=== PATIENT | female | born 1995 | race Caucasian/White ===

== ENCOUNTER 2019-02-25 19:01 | Emergency (ER) | payer OTHER, SELFPAY ==
[2019-02-25] MEDS: Acetaminophen 500 MG TAB (19:08)
--- NOTE | 2019-02-25 19:08 | W.ED.GENAD ---
Discharge Plan Disposition Patient Disposition: HOME Condition: Good Discharge Details Chief Complaint: Sorethroat Clinical Impression: Acute tonsillitis, Acute sore throat Primary Care Provider: Efraín Estrada ED Provider: Tylor Sotomayor Home Meds and New Rx's Prescriptions: New amoxicillin-pot clavulanate [Augmentin] 875-125 mg tablet 1 tab PO BID Qty: 20 RF: 0 Discharge Instructions Instructions: Pharyngitis (ED) Additional Instructions: Although your strep test is negative your signs and symptoms appear consistent with strep pharyngitis. Please take the antibiotic as directed. If you notice any worsening of your symptoms, or any new symptoms such as vomiting, diarrhea, fever, chills, shortness of breath, chest pain, numbness, weakness, or fainting , please return immediately to the emergency department for reevaluation. Please follow up with your primary care provider as soon as possible for reassessment and reevaluation. As always, it was a pleasure participating in your medical care today. Referrals: Efraín Estrada [Primary Care Provider] - Medical Decision Making This is a 23-year-old female who presents for evaluation of sore throat. Patient has had 2 days of sore throat. She states that she annually get something like this. She denies any severe fatigue. Physical exam shows large right tonsil, tonsillar exudate, no vesicles. No evidence of airway compromise. No clinical evidence of meningitis. No splenomegaly. Strep test was negative, however I feel that her symptoms are likely secondary to either a nontypeable strep, or M catarrhalis. We will treat with Augmentin, recommend continued NSAIDs. Discussed red flags for which to return. I have extensively reviewed the treatment plan and discharge instructions with the patient. I have addressed all patient concerns at this time. The patient was made aware of what symptoms to monitor for that would warrant a return to the emergency department. Discussed the plan with the patient, they demonstrate verbal understanding and agreement with our assessment and plan at this time. HPI General Date/Time Provider Initiated Documentation: 02/25/19 19:04. HPI Narrative: This is a 23-year-old female with no significant past medical history who presents today for sore throat for the last 2 days. She states that every year she seems to get a sore throat like this. However she has been strep negative in the past. She denies any severe fatigue, headache, neck pain, fever or chills. She denies any other complaints or other sick contacts. She has no other modifying factors. She has been taking ibuprofen this does slightly help her symptoms. Related Data Home Medications Medication Instructions Recorded Confirmed amoxicillin-pot clavulanate 1 tab PO BID #20 tab 02/25/19 [Augmentin] Previous Rx's Medication Instructions Recorded amoxicillin-pot clavulanate 1 tab PO BID #20 tab 02/25/19 [Augmentin] Allergies Allergy/AdvReac Type Severity Reaction Status Date / Time Sulfa (Sulfonamide Allergy Unverified 02/25/19 19:23 Antibiotics) Review of Systems All systems reviewed & are unremarkable except as noted in HPI and below PFSH Social History Smoking/Tobacco Use Status: Never Substance use type: does not use Exam Narrative Exam Narrative: 1.Const: Well-nourished, Well-developed, appearing stated age 2.Eyes: PERRL, no conjunctival injection, and symmetrical lids. 3.ENT: Atraumatic external nose and ears. Moist MM. Neck: Symmetric, trachea midline, No thyromegaly. Mild erythema the posterior oropharynx, right tonsil is mildly enlarged, tonsillar exudates is present. No evidence of peritonsillar abscess. No signs of airway compromise. Patient demonstrates good movement of cervical neck. There is no nuchal rigidity, no nuchal tenderness. Patient is able to flex the neck without any difficulty or significant pain. Negative Kernig's and Brudzinski sign. No evidence of perforation in the tympanic membranes, no effusion. 4.CVS: +S1/S2, No murmurs or gallops. Peripheral pulses 2+ and equal in all extremities. Brisk capillary refill in all extremities. 5.RESP: Unlabored respiratory effort. Clear to auscultation bilaterally. No wheezes rales or rhonchi 6.GI: Soft, Nontender/Nondistended, No hepatosplenomegaly. No guarding or rebound. 7.MSK: Normocephalic/Atraumatic, Extremities w/o deformity or ttp No cyanosis or clubbing, Normal movement of all extremities 8.Skin: Warm, Dry. No rashes or lesions. 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 Sensation grossly intact, no focal neurologic deficits. 10.Psych: (AAO) x3. Appropriate mood and affect
[2019-02-25 19:09] VITALS: BP 144/91; PULSE 95; RESP 20; TEMP 36.8; O2SAT 100
[2019-02-25] MEDS: Amoxicillin 875/Clav. 125 TAB PO (19:28)
[2019-02-25 19:39] VITALS: BP 136/75; PULSE 106; RESP 18; O2SAT 99
== END 2019-02-25 19:40 | disposition home or self-care (01) ==
LOC: ER 22:39
PROVIDERS: Emergency Provider Student in an Organized Health Care Education/Training Program; PCP Internal Medicine
DX: J03.00 Acute streptococcal tonsillitis, unspecified (principal)
CPT/HCPCS: 87880; 99283; 87081

== ENCOUNTER 2020-03-09 11:22 | Emergency (ER) | payer OTHER, SELFPAY ==
[2020-03-09 11:35] VITALS: BP 123/69; PULSE 92; RESP 16; TEMP 36.5; O2SAT 98
--- NOTE | 2020-03-09 12:20 | ED.GENADUL_ITS ---
Discharge Plan Disposition Patient Disposition: HOME Condition: Stable Discharge Details Clinical Impression: Pharyngitis Primary Care Provider: Efraín Estrada ED Provider: Jefferson Layne Home Meds and New Rx's Prescriptions: Continued fluoxetine 40 mg capsule 40 mg PO DAILY RF: 0 Discharge Instructions Instructions: Pharyngitis (ED) Additional Instructions: Rapid strep test is negative, culture is pending. If culture is positive we will contact you in place you on the appropriate antibiotics. Otherwise treat with dild-zgp-uxqiamh medications such as Tylenol, Motrin, Chloraseptic spray. Water gargles as tolerated. Please watch for new or worsening symptoms and return to the ER for any concerns. Medical Decision Making 24-year-old female presents complaining of sore throat that began last night. Clinically her tonsils bilaterally are minimally erythematous. No obvious exudates, edema, peritonsillar abscess. No uvula swelling or shifting. Patient is speaking without difficulty. She manages her secretions without difficulty. Clinically she appears well, nontoxic. Patient is afebrile, has no lym phadenopathy. Will obtain rapid strep. Rapid strep test is negative. Culture pending. Discussed findings with patient. She is concerned that she requires antibiotic therapy. I explained to her that her symptoms been going on for less than 1 day, rapid strep test is negative, and culture is pending. There are no clear indications for antibiotic therapy at this time. Suggest symptomatic control. Patient does not want a Covid test here, will attempt to find a rapid testing center. Medical Records Medical records reviewed: Yes I reviewed the patient's medical records. Lab Data Lab results reviewed: Yes I reviewed the patient's lab results. Lab results narrative: 03/09/20 11:40 Tonsil - Not Specified Streptococcus Screen (YASMIN) - Pending HPI General Mode of arrival: ambulatory . Date/Time Provider Initiated Documentation: 03/09/20 11:49 . Limitations to Documentation: no limitations . Information obtained by: patient . HPI Narrative: This is a 24-year-old female who denies any significant past medical history. She presents to the ER today reporting a sore throat that began last night, believes that she saw white patches on her tonsils. She states that she does get strep throat frequently. She has not taken any awmd-fxi-mzyrqgh medications. She has never seen an ENT specialist for her ongoing symptoms. She is also requesting a rapid Covid test so that she can return to work. I did explain to her that our tests are send outs, she no longer wants a Covid test here. Her plan is to call around and find a rapid testing center. Related Data Home Medications Medication Instructions Recorded Confirmed fluoxetine 40 mg PO DAILY 03/09/20 03/09/20 Allergies Allergy/AdvReac Type Severity Reaction Status Date / Time Sulfa (Sulfonamide Allergy Unverified 03/09/20 11:40 Antibiotics) General Stated Complaint: Sorethroat SAUL: 4 Review of Systems Constitutional Constitutional: Denies fever(s) and Denies headache(s) Eyes Eyes: Denies eye discharge ENT Ears, Nose, Mouth, and Throat: Reports otalgia, Denies headache(s), Denies neck pain and Reports sore throat Cardiovascular Cardiovascular: Denies dyspnea Respiratory Respiratory: Denies cough and Denies dyspnea Gastrointestinal Gastrointestinal: Denies abdominal pain, Denies nausea and Denies vomiting Musculoskeletal Musculoskeletal: Denies neck pain Integumentary/Breasts Skin/Breast: Denies rash Neurologic Neurologic: Denies headache(s) [facility] Social History Smoking/Tobacco Use Status: Never Smoking risk assessment performed?: Yes Alcohol Intake: current Alcohol Intake frequency: holidays/special occasions only Substance use type: does not use Exam Const General: cooperative, healthy appearing, comfortable and no acute distress Orientation: alert, awake and oriented x3 HENMT Head: normal to inspection, normocephalic and atraumatic Ears: external ears normal, TM's normal bilaterally and EAC's normal Mouth: moist mucous membranes Teeth and gingiva: dentition normal Throat: uvula midline, abnormal tonsil bilaterally erythema and hypertrophy 1+, no peritonsillar masses, posterior oropharynx abnormal erythema, uvula not displaced and no uvular edema Eyes General: appearance normal, both eyes and all related structures Alignment and Position: alignment normal Periorbital: periorbital findings normal Eyelids: eyelids normal Conjunctivae: conjunctivae normal Sclera: sclerae normal Cornea: corneas normal Pupils: PERRL EOM: EOM intact bilaterally Direct ophthalmoscopy: normal light reflex Neck Neck: normal visual inspection, full ROM, no lymphadenopathy, no meningeal signs, trachea midline, supple and nontender Resp Effort & Inspection: normal respiratory effort and able to speak in complete sentences Auscultation: clear to auscultation bilaterally Cardio Rate: regular rate Rhythm: regular rhythm Skin General skin exam: no rashes or lesions noted Neuro General: patient alert, patient awake, moves all extremities and no focal motor deficits Sensory Exam: no sensory deficits noted Psych Appearance: grossly normal Mental Status: mental status grossly normal Course Vital Signs Vital signs: Vital Signs Pulse 92 H 03/09/20 11:35 Respiratory Rate 16 03/09/20 11:35 Blood Pressure 123/69 03/09/20 11:35 Pulse Oximetry 98 03/09/20 11:35 Temperature Source Skin 03/09/20 11:35 Pulse 92 H 03/09/20 11:35 Respiratory Rate 16 03/09/20 11:35 Respiratory Effort Non-Labored 03/09/20 11:35 Blood Pressure 123/69 03/09/20 11:35 Blood Pressure Position Sitting 03/09/20 11:35 Pulse Oximetry 98 03/09/20 11:35 Pain Level 5 03/09/20 11:35 Lab/Test Results Lab/Test Results: 03/09/20 11:40 Tonsil - Not Specified Streptococcus Screen (YASMIN) - Pending POC Strep Test-FABBY(Rapid) Start: 03/09/20 11:45 Freq: .Rapid Strep Test Status: Active Protocol: Document 03/09/20 11:50 CB (Rec: 03/09/20 11:50 CB [id number]) Strep test-FABBY(Rapid)-POC POC-Strep test-FABBY (Rapid) Negative POC-Strep test-FABBY (Rapid) Negative
--- OUTSIDE RECORDS SUMMARY | 2020-03-09 12:41 | XMS_ITS ---
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 20 5153647 of acetabular labrum of right hip Problem Overweight (BMI E66.3 Active 2381 71284 25.0-29.9) ALLERGIES Substance Reaction Event Type Date Status Albuterol Sulfate made breathing worse Drug Allergy Feb, Ac tive sulfa sensitivity light reaction, itching Non Drug Allergy Feb, Active ENCOUNTERS Encounter Location Date Diagnosis LPO-SPECIALTY TEAM [facility] 10 Jan, [address] [facility] [address] [place] [address] Feb, [address] [facility] [address] [place] [address] Feb, Back pain M54.9 ; [place] [address] Irregular men ses N92.6 and Viral gastroente ritis A08.4 [facility] [address] [place] [address] Feb, [address] [facility] [address] [place] [address] Jun, [address] [facility] [address] [place] [address] Jun, [address] [facility] [address] [place] [address] May, Contr [place] [address] Z30.9 [facility] [address] [place] [address] May, Irreg ular menses N92.[address] [facility] [address] [place] [address] Mar, [place] [address] [facility] [address] [place] [address] Feb, Overw eight (BMI 25.0-29.9) [place] [address] E66.3 ; Contr aception management Z30.9 ; Oral contraception in itiation Z30.011 and Oral contraceptive us e Z30.41 [facility] [address] [place] [address] Jan, [place] [address] dysfunction of right side M53.3 [facility] [address] [place] [address] Dec, Overw eight (BMI 25.0-29.9) [place] [address] E66.3 [facility] OFF[facility] [address] [place] [address] Dec, [place] [address] dysfunction of right side M53.3 [facility] [address] [place] [address] Dec, Thyro megaly E04.9 [place] [address] -[facility] [address] Dec, Low serum [place] [address] E27.40 [facility] [address] [place] [address] Dec, [place] [address] E27.[address] Nov, Irregular m enses N92.6 ; [place] [address] Degenerative tear of acetabular labru m of right hip M16.11 ; Kevin ght gain R63.5 ; Asthma J 45.909 ; Overweight (BMI 25.0-29.9) E66.3 ; Alcohol screening Z13.89 and Encou nter for drug screening Z 02.83 [facility] [address] [place] [address] Nov, [place] [address] acetabular la jeny of right hip M16.11 ; Irr egular menses N92.6 ; W eight gain R63.5 ; Asthma J 45.909 ; Overweight (BMI 25.0-29.9) E66.3 ; Alcohol screening Z13.89 and Encou nter for drug screening Z 02.83 [facility] [address] [place] [address] Apr, [place] [address] labrum, subs equent encounter S73.19 1D [facility] Apr, [place] [address] [facility] Apr, [place] [address] labrum, subs equent encounter S73.19 1D [facility] 18 Mar, 2017 Chroni c maxillary OFFICE 1 [place] sinusitis J32. 0 and [address] Degenerative tea r of acetabular labru m of right hip M16.11 [facility] 11 Mar, 2017 [place]ear [place] [address] labrum, init ial encounter S73.191A [facility] Feb, OFFICE 1 [place], [place] [id number] [place] [address] [facility] Feb, OFFICE 1 [place], [place] [address] [place] [address] PHYSICIANS 8 [facility] Feb, OFFICE 1 [place], [place] [address] [place] [address] PH[facility] Feb, Well a dult health check OFFICE 1 [place], [place] Z00.00 ; [place] [address] drug screening Z 02.83 ; Right snapping h ip M24.851 ; Alcohol screen ing Z13.89 ; Screening for viral disease Z11.59 ; Screening for HIV (human immunodeficiency virus) Z11.4 ; Screenin g for diabetes mellitu s Z13.1 ; Encounter for li pid screening for cardiovascular d isease Z13.220 and Enco unter for initial prescrip tion of other contracept guy Z30.018 [facility] May, [place] 1 [place] [address] [facility] SUITE Apr, OFFICE 1 [place], [place] [address] [place] [address] PHYSIC[facility] 8 [facility] Apr, Encoun ter for drug OFFICE 1 [place] screening Z02. 83 ; Well [address] adult health xiomy ck Z00.00 ; Right upper qu adrant pain R10.11 and Alcohol screening Z13.89 [facility] Mar, [place] 1 [place] [address] [facility] Mar, OFFICE 1 [place], [place] [address] [place] [address] PHYSICIANS 8 [facility] SUITE Mar, OFFICE 1 [place], [place] [address] [place] [address] PHYSICIANS 8 [facility] Mar, [place] 1 [place] [address] [facility] Mar, [place]ICE 1 [place] [address] [facility] SUITE Feb, Right upper quadrant pain OFFICE 1 [place] R10.11 [address] [facility] GENER[facility] Feb, [place] [address] R10.11 [facility] SUITE Feb, Right upper quadrant pain OFFICE 1 [place] R10.11 [address] [facility] SUITE Mar, Well a dult health check OFFICE 1 [place] Z00.00 ; Asthm a J45.909 26031 and Eustachian t ube disorder H69.90 [facility] Feb, [place] [address] [place] [address] [facility] SUITE Feb, OFFICE 1 [place], [place] [address] [place] [address] [facility]ANS 8 [facility] SUITE Dec, Left o titis media H66.92 OFFICE 1 [place], [place] [address] [place] [address] [facility]YS[facility]ANS 8 [facility] SUITE Jun, OFFICE 1 [place] [address] [facility] SUITE Apr, [place]ICE 1 [place] [address] [facility] SUITE Apr, [place]ICE 1 [place] [address] zzLPO-PRIM and PSYCH [facility] Mar, [place] [address] [facility] Jan, Well b quang/ child exam OFFICE 1 [place], [place] V20.2 ; [place] [address] INFLUENZA V04.81 and KNEE PAIN 719.46 [facility] Jan, Sore t hroat (viral) NOS OFFICE 1 [place], [place] [address] [facility] Dec, [place] [address] [facility] Oct, [place] 1 [place] [address] zzLPO-PRIM and PSYCH [facility] Mar, [place] [address] [facility] Feb, [place] 1 [place] [address] [facility] GENERAL [facility] Jan, Sore throat 462 [place] [place] [address] [place] [address] [facility] Jan, Sore t hroat 462 and Acute OFFICE 1 [place] serous otitis media 381.01 68133 CASE MANAGEMENT [facility] Dec, [place] [address] [facility] Nov, [place] 1 [place] [address] [facility] Nov, SKIN D ISORDER NOS 709.9 [place] 1 [place] [address] [facility] Oct, Well b quang/ child exam OFFICE 1 [place], [place] V20.2 ; [place] [address] patella 717.7 ; Costochondritis 733.6 ; Immunization, tetanus-diphther ia V06.5 ; Need for Menactr a vaccination V03. 89 and SKIN DISORDER NO S 709.9 [facility] [address] [place] [address] Jan, Contra ception management OFFICE 1 [place] V25.9 [address] [facility] Sep, Chondromalac [place] [address] 717.7 CASE MANAGEMENT [facility] 16 Sep, 2011 Left knee pain 719.46 [place] [address] xxRADIOLOGY [facility] 16 Sep, 2011 [place] [address] [facility] [address] [place] [address] Aug, Knee s train 844.8 OFFICE 1 [place] [address] [facility] July, [place] 1 [place] [address] [facility] Jun, [place] [address] -HOSPITAL GENERAL [facility] 10 Jun, 2011 Well baby/ [place] [address] V20.2 ; Asth ma 493.90 ; FAMILY DISRUPTIO N NEC V61.09 ; ACADEMI C UNDERACHIEVMENT 313.83 ; Hyperlipemia 272 .4 and Thyromegaly 240. 9 [facility] [address] [place] [address] Jun, Well b quang/ child exam OFFICE 1 [place] V20.2 ; Asthma 493.90 ; [address] FAMILY DISRUPTIO N NEC V61.09 ; ACADEMI C UNDERACHIEVMENT 313.83 ; Hyperlipemia 272 .4 and Thyromegaly 240. 9 [facility] Apr, [place] 1 [place] [address] [facility] Feb, [place] 1 [place] [address] [facility] Feb, [place] [address] ADMINISTRATION [facility] Jan, [place], [place] [address] [place] [address] [facility] 8 [facility] 13 Nov, 2009 OFF[address] PH[facility]IC[facility] 8 [facility] 24 May, 2009 OFF[address] PHYSIC[facility] 8 [facility] 16 Jan, 2009 OFFICE [address] PHYS[facility] 8 [facility] Dec, OFFICE [address] PHYSIC[facility] 8 [facility] 14 Dec, 2008 OFFICE [address] [facility] 8 [facility] Dec, OFFICE [address] 13 Dec, 2008 Throat pain 784.1 ; [place] [address] NOS 780.60 a nd Asthmatic bronchitis w/o s tatus asthmaticus or a cute exacerbation 493 .90 [facility] Dec, Throat pain 784.1 ; FEVER OFFICE 1 [place], [place] NOS 780.60 and Asthmatic [address] bronchitis w/o s tatus asthmaticus or a cute exacerbation 493 .90 [facility] Nov, OFFICE [address] [facility] 8 [facility] Aug, Well b quang/ child exam OFFICE 1 [place] V20.2 ; ASTHMA NOS 493.90 13097 ; Allergic rhini tis due to allergen 477.8 a nd VARICELLA VACCIN ATION V05.4 [facility] [address] [place] [address] Jun, OFFICE 1 [place], [place] [address] [place] [address] [facility] May, VACCIN FOR DISEASE NEC OFFICE 1 [place] V05.8 [address] [facility] May, OFFICE 1 [place] [address] [place] [address] PHYSICIAN OFFICE [facility] 17 Nov, 2007 SABRINA [place] [address] V05.4 [facility] Nov, VARICE LLA-NOT GIVEN-HAD OFFICE 1 [place] DISEASE V64.08 [address] [facility] [address] [facility] [address] 05 Nov, 2007 SABRINA ICELL[place] [address] DISEASE V64. 08 [facility] [address] [place] [address] Nov, OFFICE 1 [place], [place] [address] [place] [address] [facility] 8 [facility] Nov, OFFICE 1 [place] [id number] [facility] 02 Nov, 2007 VACCIN FOR DISEASE NEC OFFICE 1 [place] V05.8 [address] [facility] 10 Sep, 2007 OFF[place] 1 [place] [address] [facility] Aug, Well b quang/ child exam OFFICE 1 [place] V20.2 ; DTAP V ACCINATION [address]883 V06.1 ; [place] OCCAL VACCINE V03.89 ; VACCIN FOR DISEASE NEC V05.8 ; ASTHMA NOS 493.9 0 and Allergic rhiniti s due to allergen 477.8 [facility] 06 Aug, 2007 OFFICE 1 [place] [address] [facility] 09 Jul, 2007 OFF[place] 1 [place] [address] [facility] 10 Jun, 2007 [place] [address] [facility] 18 Apr, 2007 ASTHMA NOS 493.90 and OFFICE 1 [place] [address] allergen 477.8 [facility] Jan, ASTHMA NOS 493.90 [place] 1 [place] [address] [facility] 07 Jan, 2007 Influe nza vaccination OFFICE 1 [place] V04.81 [address] [facility] 14 Nov, 2006 OFF[place] 1 [place] [address] [facility] 17 Oct, 2006 ASTHMA NOS 493.90 OFFICE 1 [place] [address] IMMUNIZATIONS Vaccine Route Administration Date Status Hep B HISTORY adolescent or Unknown 1996 Admi nistered pediatric Influenza HISTORY Unknown Jan 17, 2011 Administered -[place]PV [place] Gardasil 12876 Unknown August 30, 2007 Admini stered -[place]PV [place] Gardasil 48206 Unknown Nov 05, 2007 Admini stered polio HISTORY Unknown 1996 Administered polio HISTORY Unknown June 15, 1997 Administered Hep B HISTORY adolescent or Unknown 1996 Admi nistered pediatric Hep B HISTORY adolescent or Unknown 1996 Admi nistered pediatric Hib HISTORY Unknown 1996 Administered -[place]PV [place] Gardasil 84467 Unknown May 20, 2008 Admini stered Tdap STATE Adacel 7yrs or older of IM Intramuscular Oct 28, 2012 Administered age 42[address] Varicella STATE Unknown August 31, 2008 Administered Varicella STATE [place] Subcutaneous Nov 20, 2007 Administered Meningococcal STATE(Menactra) 51621 [place] Subcutaneous Oct 28, 2012 Administered Meningococcal STATE(Menactra) 83507 Unknown August 29 8 Administered -Influenza split STATE preser IM Intramuscular Apr 08, 2010 A dministered free>35mos (98508) -Influenza split STATE preser IM Intramuscular Jan 09, 2007 A dministered free>35mos (19647) Hib HISTORY Unknown 1996 Administered Hib HISTORY Unknown 1996 Administered -Influenza FLUZONE STATE IM Intramuscular Jan 19, 2014 Admini stered 36mos-18yrs DTaP,HISTORY Unknown 1996 Administered DTaP,HISTORY Unknown 1996 Administered DTaP,HISTORY Unknown 1996 Administered DTaP,HISTORY Unknown June 15, 1997 Administered Depo-Provera 150MG/ML IM Intramuscular Feb 15, 2017 Administe red MMR HISTORY Unknown June 15, 1997 Administered MMR HISTORY Unknown July 27, 2000 Administered DTaP,HISTORY Unknown August 30, 2007 Administered polio HISTORY Unknown 1996 Administered polio HISTORY Unknown 1996 Administered SOCIAL HISTORY Qualifiers Date Never Smoker REASON FOR REFERRAL FUNCTIONAL STATUS PLAN OF CARE Activity Details Follow Up if not better Reason: Future Test US Transvaginal Pelvic 927 Future Test MR Joint Lower Ext R w (7372 2)-arthrogram [id number] Future Test X Hip R 2V [id number] Future Test NM HIDA Scan w/CCK (29280) 2 7670964 Future Test US Abdomen Limited (54749) 2 3340612 Future Test UA DIPSTICK ONLY-with CPE/IC C 20121028 VITAL SIGNS Height 64.5 in 2019-02-10 Weight 141.9 lbs 2019-02-10 BMI 23.98 kg/m2 2019-02-10 Temperature 99.1 degrees Fahrenheit 2019-02-10 Heart Rate 94 /min 2019-02-10 Respiratory Rate 18 /min 2019-02-10 Oximetry 98 % 2019-02-10 Blood pressure systolic 126 mm Hg 2019-02-10 Blood pressure diastolic 80 mm Hg 2019-02-10 MEDICATIONS Medication Instructions Dosage Frequency Start End Date Duration Stat us Date Xopenex HFA 45 Inhalation every 2 puffs Jun, 30 days Active MCG/ACT 4 hrs as needed 2018 Sprintec 28 Orally Once a day 1 tablet 24h 11 Mar, 28 day(s) Active 0.25-35 MG-MCG 2018 PROCEDURES Procedure Date Ordered Result Body Site UA- TEST (g code 36559) Feb 10, 2019 UA-DIPSTICK ([facility] code 04516) Feb 10, 2019 No HTN DX,BP <120/80 (71434) Feb 10, 2019 Med Rec done (73206) Feb 10, 2019 BMI normal (42134) Feb 10, 2019 Tob non-user (34870) Feb 10, 2019 SBIRT screening 2016-04-05 Negative SBIRT screening 2017-02-15 neg SBIRT screening 2017-11-29 N/A RESULTS Name Result Date Reference Range RAPID STREP SCREEN,AT HOSPITAL 2019-02-25 RAPID STREP SCREEN STREP A UA DIPSTICK ONLY-DIAGNOSTIC 2019-02-10 Color sonia Clarity clear Specific [place] 1.030 Glucose. neg Bilirubin small Ketones trace Blood large PH 5.5 Protein 30 mg Urobilinogen 1.0 Nitrite neg Leukocytes neg UA-Urine ,IN OFFICE 2019-02-10 RESULT NEG UA-COLONY COUNT ONLY 2019-02-10 Culture Observations No growth after 2 days of incubation UA-Urine ,IN OFFICE 2018-02-19 RESULT NEG ACTH 2017-12-04 ACTH, PLASMA 65.0 7.2-63.3 CORTISOL-SERUM 2017-12-04 [facility]-S 22.26 4.30-22.40 COMPMET 2017-11-29 GLUC 83 74-106 BUN 9 7-25 CREATS 0.64 0.60-1.20 EGFR >60 >=60 NA 137 136-144 K+ 4.0 3.5-5.1 CL 103 98-110 CO2 25 22-32 CA 9.7 8.6-10.3 TP 7.1 6.0-8.3 ALB 4.3 3.4-5.0 TBIL 0.5 0.3-1.2 DBIL 0.1 0.0-0.2 ALKP 98 34-104 AST 17 13-39 ALT 12 7-52 CORTISOL-SERUM 2017-11-29 [facility]-S 3.23 4.30-22.40 HEMOGLOBIN A1C 2017-11-29 HGBA1C 5.2 4.0-6.0 CMG 103 INSULIN 2017-11-29 INSULIN 16.4 2.6-24.9 TESTOSTERONE FREE AND TOTAL 2017-11-29 TESTOSTERONE, SERUM 25 8-48 FREE TESTOSTERONE(DIRECT) 0.5 0.0-4. 2 TSH 2017-11-29 TSH 1.622 0.360-4.800 US Transvaginal Pelvic 2017-12-03 See Below For Report MR Joint Lower Ext R w 2017-04-16 (79471)-arthrogram Image Accessible X Hip R 2V 2017-02-19 See Below For Report NM HIDA Scan w/CCK (35970) 2016-03-14 See Below For Report US Abdomen Limited (29385) 2016-02-23 See Below For Report AMYLASE 2016-02-17 DARÍO 44 25-115 BASEMET 2016-02-17 GLUC 83 74-106 BUN 10 7-18 CREATS 0.87 0.55-1.30 EGFR >60 >=60 NA 142 136-144 K+ 4.1 3.7-5.0 CL 105 98-108 CO2 25 22-32 CA 9.0 8.5-10.1 CBC WITH AUTO DIFF 2016-02-17 WBC 9.8 4.0-12.0 RBC 5.1 4.5-6.0 HGB 14.2 12.5-16.0 HCT 42.4 37.0-47.0 MCV 83 78-100 MCH 27.9 27.0-32.0 MCHC 33.5 32.0-36.0 RDW 13.7 11.0-14.0 PLT 282 140-440 MPV 12.2 7.4-11.0 ANC# 5.8 1.4-7.9 IG# 0.0 0.0-0.1 LY# 3.0 1.5-4.0 MO# 0.6 0.2-0.8 EO# 0.4 0.0-0.7 BA# 0.1 0.0-0.2 NE% 59.0 IG% 0.1 0.0-1.0 LY% 30.5 MO% 6.1 EO% 3.9 BA% 0.5 LIVER FUNCTION TESTS 2016-02-17 TP 7.5 6.5-8.1 ALB 4.1 3.4-5.0 TBIL 0.5 0.3-1.2 DBIL 0.2 0.0-0.2 ALKP 81 46-116 AST 15 15-37 ALT 18 13-78 UA-DIP PLUS MICRO W/REFLEX 2016-02-17 COL Yellow YELLOW CLARITY Clear CLEAR SG 1.020 1.001-1.035 GLU. Negative NEGATIVE SAGE Small NEGATIVE KET Trace NEGATIVE BLD Moderate NEGATIVE PH 5.5 5.0-8.0 PROT Negative NEGATIVE UROBILINOGEN 0.2 E.U./dL 0.2-1.0 NIT Negative NEGATIVE SAURABH Negative NEGATIVE MUC 3+ NEGATIVE BACT NEGATIVE NEGATIVE SEGUNDO NEG NEG EPI 3+ NEG RBCS NEGATIVE NEG WBCS NEGATIVE NEGATIVE CAST NEG NEG AMORPH NEG NEG RAPID STREP SCREEN,IN OFFICE 2014-01-07 (2 Swab System) Result Neg RAPID STREP PLATE 2014-01-07 Culture Observations Negative for group A Strep. Direct Exam Negative first am read RAPID STREP PLATE 2013-01-15 Direct Exam Negative at first am read Culture Observations No Group A Strep isolated RAPID STREP SCREEN,IN OFFICE 2013-01-15 (2 Swab System) Result Neg Path:Skin lesion 2012-11-18 Result UA DIPSTICK ONLY-with CPE/ICC 2012-10-28 COLOR yellow CLARITY clear SPECIFIC GRAVITY 1.030 GLUCOSE N BILIRUBIN N KETONES N BLOOD MOD PH 5.0 PROTEIN N UROBILINOGEN 0.2 LEUKOCYTES N NITRITES N UA-DIP W/REFLEX 2012-01-12 COLOR Yellow YELLOW CLARITY Clear CLEAR SPECIFIC GRAVITY >=1.030 1.001-1.035 GLUCOSE Negative NEGATIVE BILIRUBIN Negative NEGATIVE KETONES Negative NEGATIVE BLOOD Negative NEGATIVE PH 5.0 5.0-8.0 PROTEIN Negative NEGATIVE NITRITES Negative NEGATIVE LEUKOCYTES Negative NEGATIVE BASEMET 2012-01-12 GLUCOSE 85 74-115 BUN 12 7-18 CREATININE STANDARDIZED 0.62 0.60-1.3 0 SODIUM 139 136-145 POTASSIUM 3.4 3.7-5.0 CHLORIDE 103 99-109 CARBON DIOXIDE 26 23-31 CALCIUM 9.8 8.5-10.1 CBC WITH AUTO DIFF 2012-01-12 WHITE BLOOD COUNT 11.3 4.5-15.5 RED CELL COUNT 5.2 3.5-6.0 HEMOGLOBIN 14.7 11.5-15.5 HEMATOCRIT 44.4 35.0-45.0 MEAN CORPUSCULAR VOLUME 85 77-100 MEAN CORPUSCULAR HEMOGLOBIN 28.2 25.0 -35.0 MEAN CORPUSCULAR HGB CONC. 33.1 31.0- 37.0 RED CELL DISTRIBUTION WIDTH 13.1 11.0 -14.0 PLATELET 338 150-450 MEAN PLATELET VOLUME 12.1 7.4-11.0 NEUTROPHIL % 58.2 42.2-75.2 LYMPHOCYTE % 32.9 20.5-51.0 MONOCYTE % 4.8 1.7-9.3 EOSINOPHIL % 4 0-6 BASOPHIL % 1 0-1 ABSOLUTE NEUTROPHIL COUNT 6.6 1.4-7. 9 AUTOMATED UA-Urine ,AT HOSPITAL 2012-01-12 HCG URINE NEGATIVE NEGATIVE X ray: Abdomen- KUB-CPT [id number] 2012-01-12 X ray: Knee, left 2011-09-18 CBC WITH AUTO DIFF 2011-06-13 WHITE BLOOD COUNT 8.4 4.5-15.5 RED CELL COUNT 4.8 3.5-6.0 HEMOGLOBIN 13.3 11.5-15.5 HEMATOCRIT 42.0 35.0-45.0 MEAN CORPUSCULAR VOLUME 88 77-100 MEAN CORPUSCULAR HEMOGLOBIN 27.8 25.0 -35.0 MEAN CORPUSCULAR HGB CONC. 31.7 31.0- 37.0 RED CELL DISTRIBUTION WIDTH 14.7 11.0 -14.0 PLATELET 251 150-450 MEAN PLATELET VOLUME 12.7 7.4-11.0 NEUTROPHIL % 49.3 42.2-75.2 LYMPHOCYTE % 37.1 20.5-51.0 MONOCYTE % 7.8 1.7-9.3 EOSINOPHIL % 5 0-6 BASOPHIL % 1 0-1 ABSOLUTE NEUTROPHIL COUNT 4.2 1.4-7. 9 AUTOMATED GLUCOSE FASTING 2011-06-13 GLUCOSE FASTING 93 74-115 LIPID W/ CALCULATED LDL 2011-06-13 CHOLESTEROL 97 0-200 TRIGLYCERIDE 71 88-142 HDL 42 39-96 LDL 39 5-99 CHOL/HDL 2.3 0.0-4.5 T4 FREE 2011-06-13 T4 FREE 1.18 0.61-1.22 TSH 2011-06-13 THYROID STIMULATING HORMONE 1.573 0.34 0-5.600 UA DIPSTICK ONLY-with CPE/ICC 2011-06-12 COLOR yellow CLARITY SPECIFIC GRAVITY 1.015 GLUCOSE neg BILIRUBIN neg KETONES neg BLOOD neg PH 7.5 PROTEIN neg UROBILINOGEN 0.2 LEUKOCYTES tr NITRITES neg INFLUENZA A/B 2008-12-[address]ATE 2008-12-15 REASON FOR VISIT Re-establish with SG , [facility] ER note-await fax, back/stomach pain 1.5 weeks, Patient states that she has been having pain in her back that travels to the front. Has been haivng this pain for about 2 weeks, No refills needed-GR, pain in back and stomach, CPE, SG CPE <40-CPE Roomer, patient will need a pap, Levalbuterol denial - PA re sent , change inhalers, 3 MON MED & Weight FU--patient cancelled did not want to r/s 05/24, med list udpate, Wants a call back , RF Proventil, f/u weight , No refills needed-GS, 2 MON weight FU--pateitn cancelled did not want to r/s 02/11, 5 wk f/u, Pt saw Adalberto at PT, states it is helping, has last appt on 01/17-sd, 1 MON weight FU, Flu Vaccine- patient declines, Patient states no new concerns, Rt hip pain, Pt had Rt hip xray 02/2017, Pt states Rt hip pain for 1 year, pt was sent to [facility]-sd, Pt states just wants to see what AL has to say about it-sd, Pt states " has more pain in her back now"-sd, Pt states pain "can be an 8 out of 10 on really bad days"-sd, US results/referral, lab, Lab results, LAB, New PCP (Dr. Sutton patient), Patient would like to discuss her period, states that she will have it for three weeks and then not have it for a month, DISCLAIMER: THIS NOTE WAS CREATED USING [employer] VOICE RECOGNITION SOFTWARE. IT WAS REVIEWED FOR MAJOR CONTENT. HOWEVER, THERE MAY BE MULTIPLE SMALL DISCREPANCIES AND ERRORS DUETO THE VOICE RECOGNITION ASPECTS OF THE SOFTWARE., MRI f/u AL patient, pt states no other concerns today, MRI result, AL call back, f/u, Rt hip pain, Pt states has been popping, snapping, constant pain, injury-sd, work excuse, Something for hip pain, hip pain, next step, CPE , patient requested 02/09, right hip pain and popping? stress fractures and tendonitis? x's 3 months, restart omeprazole, discuss depo shot, 6 week f/u , refill-bcp, omeprazole, CPE, Pt has no concerns today, No refills needed atthis time , Pt declined flu shot today , change phone #, abd pain , HIDA results, Prescription refill , HIDA, LAB , stomach issue requested date, pain in ruq, diarrhea after eating, worse if she eats greasy foods since october, worse at night, Yearly exam. 19 Year Female Check, cholesterol, see preventative medicine, USPSTF recommends urine chlamydia screening for sexually active females in this age group, Pt. states she is concerned about not having a period since restarting control., BCP refill, refill-BCP---needs appt, ER f/u (weeks), No refills needed , Pt states that she hears ringing in both ears SB, [facility], another note, Letter for , LO [employer], 18 [facility], UTD on immunizations, flu shot if parent desires(yes) has fever though, Pt states she needs papers fromus regarding her knee injury to [employer]. , sore throat, pt states her ears hurt, stuffy, BC refill, form for school, XOPENEX PA-ALTERNATIVE, Refill Inhaler, strep, left ear bothering, starting to hurt in right, sore throat, Medications reviewed w/pt,med. list is correct margarito, Sports PE, PT Discharge Note, Stitch Removal, MOLE REMOVAL, from back shoulder, Medications reviewed w/pt,med. list is correct (JEANIE), wcc, pap only per pt.mom, Pt's mom states that she would like to talk to you about control for pt., Pt's states that she is not taking any medications-KF, LT KNEE PAIN, per pt" since July-went to slide into base and landed on left knee cap-pain when walking alot ,no numbness or tingling in the foot or toes., per pt " swells on and off,no popping,grinding.", Medications reviewed w/pt mother,med. list is correct- ch, Knee pain worsening, lt knee, knee problem-left knee. She states that it gives out on her, hurts to walk, Medications reviewed w/pt,med. list is correct- tp, Letter for camp, Blood work-HK, lab, WCC/Sport PE, Meds reviewed by pt,no longer taking: Benadryl, Prednisone, Zithromax, Nasonex, Singulair, Advair SP, Needs a short term inhaler for sports Xopenex, flu vaccine, Refill on Advair and Singulair , No resopnse--SINGULAIR REFILL-apt--,advair, signulair samples, wrong pt, Refill Singulair, Advair, List of meds/times to take, refill advair diskus, Question about flu diagnosis, flu questions, Liquid zithromax not available today, fever, congestion, pt states that she started sunday with fever. fever has been around 101.0, pt also has sore throat, body aches, Note for school to hand carry Ventolin HFA, yearly, Jaydon ZACARIAS student, singulair refill request fax, 3rd HPV, Refill Advair, chicken pox vaccine per dr barkley , VARICELLA VACCINE ADMINISTERED BY Niels TIRADO RN, ? varicella titer, chicken pox vaccine , medication, would like order for Xopenex , 2ND GUARDASIL, 2ND GUARDASIL, LMOM- Change in asthma, Wcc and f/u on meds, Jaydon Zacarias student, Allergies, Verify Advair Order, samples singulair, f/u asthma. doing very well. No issues, and not having to use her rescue inhaler once this winter, Does have some seasonal allergies. , 3 MONTH FU, flu shot, SCHOOL NEEDS IMUN RECORDS SAYS SHE IS SHORT A DPT, NEW PATIENT ASTHMA HX Insurance Providers [facility] Member Patient Patient Patient Patient Patient Subscriber Subscriber Subscriber Group Insurance Plan Plan Plan Plan ID Relationship Address Phone Name Date of ID Name Date of No Type Insurance Insurance Insurance Coverage to Subscriber Address Phone Name Dates SELF PAY ANY STREET SELF PAY [place] [id number] INSURANCE MEDICAID EDS MEDICAID self [place]AN[place] [id number] [place] BO[place] [employer] [facility] [id number] MEDICAID EDS MEDICAID self [place] [id number] [place] A BOEMIG [employer] [facility] [id number] SELF PAY [address] STRE[address] SELF PAY self [place] [id number] GENERAL VEN[place] GENERAL A [place] [id number] [place] [id number] SELF PAY self [place] [id number] [place] [id number] SELF PAY [place] [id number] [place] [id number] INS [facility] ATTN [facility] CASSANDR [id number] LEVEL 0- [address] LEVEL 0- A BOEMIG 100% SIA 100% [facility] [id number] MEDICAID XEROS MEDICAID self [place]ANDR [id number] [place] BO[place] [facility] [id number] MEDICAID EDS MEDICAID self [place]DR [id number] [place] [id number] [facility] [address] [facility] self CASSANDR [id number] NETWORK [id number] NETWORK A BOEMIG [facility] [id number] [facility] [address] [facility] self CASSANDR [id number] NETWORK [id number] NETWORK A BOEMIG [facility] [id number] SELF PAY self [place] [id number] [place] [id number] INS[address] [address] [place] self CASSANDR [id number] [place] [id number] SELF PAY [address] STRE[address] SELF PAY [place] [id number] [place] [id number] SELF PAY [place] [id number] [place] [address] [address] [place] [address] [place] self CASSANDR [id number] [place] [id number] [place] [address] [place] self CASSANDR [id number] A [place]IG [place] [id number] SELF PAY [address] SELF PAY self [place] [id number] [place] [id number] SELF PAY [place] 5 [place] [id number] INSURANCE MEDICAL (GENERAL) HISTORY Type Description Date Medical History Asthma Medical History Environmental allergies Medical History broke right arm Medical History Has had chicken pox Medical History patellofemoral syndrome Surgical History Broken arm right 06/09 Hospitalization History No Hospitalization history informati on
== END 2020-03-09 12:44 | disposition home or self-care (01) ==
LOC: ER 12:39
PROVIDERS: Emergency Provider Physician Assistant; PCP Physician Assistant Medical
DX: J02.9 Acute pharyngitis, unspecified (principal)
CPT/HCPCS: 87880; 99282; 87081; 99283

== ENCOUNTER 2020-07-01 13:41 | Emergency (ER) | payer MEDICAID, SELFPAY ==
[2020-07-01 13:55] VITALS: BP 101/43; PULSE 103; RESP 22; TEMP 36.4; O2SAT 99
--- NOTE | 2020-07-01 14:00 | DI.RAD_ITS ---
Exam(s) XR FOOT RT COMPLETE EXAM: XR FOOT RT COMPLETE CLINICAL HISTORY: Great toe and foot pain, R/O Fracture. TECHNIQUE: 2D digital imaging was performed. COMPARISON: No exams were available for comparison FINDINGS: Comminuted minimally displaced fracture distal phalanx of great toe. Fracture line not appear to inv olve interphalangeal joint. There is no radiopaque foreign body. No osseous lesions. IMPRESSION: DATA REPOSITORY: RADIATION DOSE DELIVERED:
--- NOTE | 2020-07-01 15:04 | ED.GENADUL_ITS ---
Discharge Plan Disposition Patient Disposition: HOME Condition: Stable Discharge Details Clinical Impression: Fracture of right great toe Primary Care Provider: Felisa Le ED Provider: Nalini Farris Home Meds and New Rx's Prescriptions: No Action 1 mg Tablet 1 tab PO DAILY RF: 0 Discharge Instructions Instructions: Toe Fracture (ED) Additional Instructions: Use postop shoe as directed crutches if needed. Do not bump toe on anything or apply weight to the toe if possible. He may soni tape it to the toe next to it for stabilization if that improves pain. You may take Tylenol every 4 to hours as needed for pain. Rest ice compression elevation. Keep wound clean and dry. Return to the ED or be seen sooner if any signs of infection including increased redness, swelling, worsening drainage to the area. Referrals: Felisa Le [Primary Care Provider] - Discharge Data Discharge Date/Time-TO BE ENTERED AT DEPARTURE: 07/01/20 15:28 Medical Decision Making 25-year-old 5-month-old female presents to the ER chief complaint of right great toe pain status post a trip and fall prior to arrival. Patient did not take any medications prior to arrival. She is not complaining of any ankle pain or knee pain. No other injuries noted. EXAM: XR FOOT RT COMPLETE CLINICAL HISTORY: Great toe and foot pain, R/O Fracture. TECHNIQUE: 2D digital imaging was performed. COMPARISON: No exams were available for comparison FINDINGS: Comminuted minimally displaced fracture distal phalanx of great toe. Fracture line not appear to involve interphalangeal joint. There is no radiopaque foreign body. No osseous lesions. 1508: Spoke with Dr. Arias regarding patient he was able to personally review the x-rays. He does recommend postop shoe and offering soni tape if needed. Will instruct patient not to bump toe or place weight on toe as much as possible. We did discuss the small skin break at the base of the nail he states that antibiotics could be offered and some local bacitracin ointment. HPI General Mode of arrival: wheelchair . Date/Time Provider Initiated Documentation: 07/01/20 13:57 . Limitations to Documentation: no limitations . Information obtained by: patient . HPI Narrative: 25-year-old 5-month-old female presents to the ER chief complaint of right great toe pain st atus post a trip and fall prior to arrival. Patient did not take any medications prior to arrival. She is not complaining of any ankle pain or knee pain. No other injuries noted. Related Data Home Medications Medication Instructions Recorded Confirmed cqvxjnzu-mki-Qs-FA 1 tab PO DAILY 07/01/20 07/01/20 [] Allergies Allergy/AdvReac Type Severity Reaction Status Date / Time Sulfa (Sulfonamide Allergy Unverified 07/01/20 13:58 Antibiotics) General Stated Complaint: Orthopedic SAUL: 4 Review of Systems All systems reviewed & are unremarkable except as noted in HPI and below ENT Ears, Nose, Mouth, and Throat: Reports neck pain Musculoskeletal Musculoskeletal: Reports as per HPI, Reports abnormal gait, Reports arthralgias (Right great toe), Reports joint swelling, Reports neck pain and Reports radiating pain into limb Neurologic Neurologic: Reports abnormal gait [facility] Social History Smoking/Tobacco Use Status: Never Smoking risk assessment performed?: Yes Alcohol Intake: current Alcohol Intake frequency: holidays/special occasions only Substance use type: does not use Exam Extrem Right lower extremity: ankle Details: normal to inspection, no edema and normal ROM; no tenderness and no swelling and foot Details: normal capillary refill, tenderness Location: of the great toe Location: at the distal phalanx and along the entire digit and laceration dorsal great toe Details: linear, superficial and with sensation intact Left lower extremity: normal to inspection and full ROM Ankle/foot/toe images: 1. Small break in skin, bleeding controlled 2. Tenderness, no obvious deformity Course Vital Signs Vital signs: Vital Signs Temperature 36.4 C L 07/01/20 13:55 Pulse 103 H 07/01/20 13:55 Respiratory Rate 22 07/01/20 13:55 Blood Pressure 101/43 L 07/01/20 13:55 Pulse Oximetry 99 07/01/20 13:55 Temperature 36.4 C L 07/01/20 13:55 Temperature Source Skin 07/01/20 13:55 Pulse 103 H 07/01/20 13:55 Respiratory Rate 22 07/01/20 13:55 Respiratory Effort Non-Labored 07/01/20 14:39 Blood Pressure 101/43 L 07/01/20 13:55 Blood Pressure Position Sitting 07/01/20 13:55 Pulse Oximetry 99 07/01/20 13:55 Oxygen Delivery Method Room Air 07/01/20 13:55 Oxygen Flow Rate 0 07/01/20 13:55 Pain Level 8 07/01/20 13:55
[2020-07-01] MEDS: Acetaminophen 500 MG TAB 1000 MG PO (15:08)
== END 2020-07-01 15:28 | disposition home or self-care (01) ==
PROVIDERS: Emergency Provider Registered Nurse Emergency; PCP Physician Assistant Medical
DX: S92.421A Displaced fracture of distal phalanx of right great toe, initial encounter for closed fracture (principal); W01.198A Fall on same level from slipping, tripping and stumbling with subsequent striking against other object, initial encounter; Z3A.20 20 weeks gestation of pregnancy
CPT/HCPCS: 28490; 73630

== ENCOUNTER 2021-02-15 08:02 | Emergency (ER) | payer MEDICAID, SELFPAY ==
[2021-02-15 08:07] VITALS: BP 144/78; PULSE 98; TEMP 37; O2SAT 96
--- NOTE | 2021-02-15 08:12 | ED.GENADUL_ITS ---
Discharge Plan Disposition Patient Disposition: HOME Condition: Stable Discharge Details Clinical Impression: Ankle sprain Primary Care Provider: Felisa Le ED Provider: Jefferson Layne Home Meds and New Rx's Prescriptions: Continued idrxulxq-fjy-Si-FA 1 mg Tablet 1 tab PO DAILY RF: 0 Discharge Instructions Instructions: Ankle Sprain (ED) Additional Instructions: Rest, elevate, cool compresses every 2 hours for 20 minutes. Fplm-hvx-ldrbqaf medications as directed for symptomatic control. Wear walking boot as needed, advance activity as tolerated. Please watch for new or worsening symptoms and return to the ER for any concerns. If symptoms not resolving with conservative measures of the next week, then I recommend following up with your primary provi brett who may eventually refer you to orthopedics if necessary. Medical Decision Making 25-year-old female presents with left ankle injury she sustained just prior to arrival. No other injuries. There is swelling and discomfort over the lateral malleolus. No obvious deformity. Skin intact. Neuro, vascular, tendon intact. Will obtain x-ray to rule out bony abnormality. X-ray negative for fracture or dislocation. Small effusion noted. Discussed x-ray findings with patient. Discussed disposition. She is agreeable to a walking boot but declines crutches. 800 mg p.o. Motrin given. Standard discharge and return precautions provided This documentation was generated using [employer] system, please disregard any oddities of phrase or misspellings. Medical Records Medical records reviewed: Yes I reviewed the patient's medical records. Imaging Data Radiologic Study: Attestation: I personally reviewed and interpreted this imaging study as follows: Imaging: X-Ray Radiologist's impression: XR ANKLE LT COMPLETE CLINICAL HISTORY fall/twist TECHNIQUE 2D digital imaging was performed of the left ankle. [Three] images were obtained. [AP, lateral and oblique][][] views were obtained. COMPARISON [No exams were available for comparison] [] FINDINGS BONES: [No acute fracture is present.] [No bony destructive lesion is seen.] [] JOINTS:[The ankle mortise is normally aligned.] [There is a joint effusion.] SOFT TISSUE: [Soft tissue swelling about the ankle laterally.] [] IMPRESSION [No acute fracture or dislocation. Joint effusion and soft tissue swelling.] HPI General Mode of arrival: ambulatory . Date/Time Provider Initiated Documentation: 02/15/21 08:12 . Limitations to Documentation: no limitations . Information obtained by: patient . HPI Narrative: This is a 25-year-old female who reports missing a step, twisting her ankle at home just prior to arrival. She is able to bear weight with increased discomfort. Pain is moderate at rest worse with movement. Denies any other injury, numbness, tingling, weakness. She has not taken any medication for her symptoms. Related Data Home Medications Medication Instructions Recorded Confirmed umczvbfe-[id number]-[id number]-FA 1 tab PO DAILY 07/01/20 07/01/20 Allergies Allergy/AdvReac Type Severity Reaction Status Date / Time Sulfa (Sulfonamide Allergy Unverified 07/01/20 13:58 Antibiotics) General Stated Complaint: Orthopedic SAUL: 4 Review of Systems Constitutional Constitutional: Denies headache(s) and Denies weakness ENT Ears, Nose, Mouth, and Throat: Denies headache(s) Musculoskeletal Musculoskeletal: Denies deformity, Reports arthralgias, Denies numbness, Reports stiffness and Denies tingling Integumentary/Breasts Skin/Breast: Denies erythema Neurologic Neurologic: Denies headache(s), Denies numbness, Denies tingling and Denies weakness PFSH All Active Problems (Updated 02/15/21 @ 08:41 by EUSEBIO Hernandez) Fracture of right great toe (Acute) Ankle sprain (Acute) Social History Smoking/Tobacco Use Status: Never Smoking risk assessment performed?: Yes Alcohol Intake: current Alcohol Intake frequency: holidays/special occasions only Substance use type: does not use Do you feel safe at home: Yes Do you feel safe in your relationship?: Yes Exam Const General: cooperative, healthy appearing, comfortable and no acute distress Orientation: alert and awake [facility] Head: normal to inspection, normocephalic and atraumatic Eyes General: appearance normal, both eyes and all related structures Conjunctivae: conjunctivae normal Neck Neck: normal visual inspection, trachea midline and supple Resp Effort & Inspection: normal respiratory effort and able to speak in complete sentences Cardio Rate: regular rate Rhythm: regular rhythm Skin General skin exam: no rashes or lesions noted Neuro General: patient alert, patient awake, moves all extremities and no focal motor deficits Cognition: normal cognition Speech: speech normal Gait: antalgic Motor: muscle tone normal throughout Sensory Exam: no sensory deficits noted Extrem General: capillary refill normal Left lower extremity: normal capillary refill, ankle (Lateral malleolus) Details: abnormal to inspection, tenderness, swelling and normal ROM; no ecchymosis and no crepitus and foot (Unremarkable) Psych Appearance: grossly normal Mental Status: mental status grossly normal Course Vital Signs Vital signs: Vital Signs Temperature 37.0 C 02/15/21 08:07 Pulse 98 H 02/15/21 08:07 Blood Pressure 144/78 H 02/15/21 08:07 Pulse Oximetry 96 02/15/21 08:07 Temperature 37.0 C 02/15/21 08:07 Temperature Source Temporal Artery Scan 02/15/21 08:07 Pulse 98 H 02/15/21 08:07 Blood Pressure 144/78 H 02/15/21 08:07 Blood Pressure Position Sitting 02/15/21 08:07 Pulse Oximetry 96 02/15/21 08:07 Oxygen Delivery Method Room Air 02/15/21 08:07 Oxygen Flow Rate 0 02/15/21 08:07 Pain Level 8 02/15/21 08:07
--- NOTE | 2021-02-15 08:15 | DI.RAD_ITS ---
Exam(s) XR ANKLE LT COMPLETE EXAM: XR ANKLE LT COMPLETE CLINICAL HISTORY: fall/twist TECHNIQUE: 2D digital imaging was performed of the left ankle. Three images were obtained. AP, lat eral and oblique views were obtained. COMPARISON: No exams were available for comparison FINDINGS: BONES: No acute fracture is present. No bony destructive lesion is seen. JOINTS:The ankle mortise is normally aligned. There is a joint effusion. SOFT TISSUE: Soft tissue swelling about the ankle laterally. IMPRESSION: 1. No acute fracture or dislocation. 2. Joint effusion and soft tissue swelling. DATA REPOSITORY: RADIATION DOSE DELIVERED:
[2021-02-15] MEDS: Ibuprofen 800 MG TAB PO (08:39)
== END 2021-02-15 08:58 | disposition home or self-care (01) ==
PROVIDERS: Emergency Provider Physician Assistant; PCP Physician Assistant Medical
DX: S93.492A Sprain of other ligament of left ankle, initial encounter (principal); X50.1XXA Overexertion from prolonged static or awkward postures, initial encounter
CPT/HCPCS: 29515; 99283; 73610

== ENCOUNTER 2022-03-08 18:35 | Emergency (ER) | payer MEDICAID, SELFPAY ==
[2022-03-08 18:50] VITALS: BP 152/105; PULSE 115; RESP 18; TEMP 37; O2SAT 98
--- NOTE | 2022-03-08 19:09 | ED.GENADUL_ITS ---
Discharge Plan Disposition Patient Disposition: Home Condition: Improving Discharge Details Clinical Impression: Gastroenteritis Primary Care Provider: Felisa Le ED Provider: Abner Balbuena Home Meds and New Rx's Prescriptions: Continued norethindrone-e.estradiol-iron [Ana Lilia Fe 03/24 (28)] 1 mg-20 mcg (21)/75 mg (7) tablet 1 tab PO 1XD Label Comments: TAKE ONE TABLET BY MOUTH EVERY DAY Discharge Instructions Instructions: Gastroenteritis (ED) Additional Instructions: Home to rest this evening. Small, frequent sips of fluids to maintain good hydration. Please provide Zofran as needed for nausea. Tylenol and/or ibuprofen as needed for discomfort or fever. Follow-up with regular doctor if not improved in 2 to 3 days time. Medical Decision Making 26-year-old female presents from home complaining of 2 issues: She had very flu 2 weeks ago, recovered, and then developed right sinus pain and pressure. She was seen at an outlying urgent care and started on amoxicillin yesterday. Today she and her developed nausea, vomiting, loose and watery stools. She has tolerated penicillins in the past and does not feel being antibiotic was the source of her illness today. On exam she has slight right sinus tenderness, is noted to be slightly tachycardic. Differential diagnosis includes gastroenteritis, sinus infection, will exclude other viral processes with COVID and influenza swab. Viral swabs are negative. Patient had IV access established and given fluid bolus with Zofran and ketorolac. She is improved. She may have a mild sinusitis in addition to acute gastroenteritis. HPI General Mode of arrival: ambulatory . Date/Time Provider Initiated Documentation: 03/08/22 19:00 . Limitations to Documentation: no limitations . Information obtained by: patient . History of Present Illness 26 year old F presents to the emergency department with the chief complaint of Nausea vomiting diarrhea, right sinus pressure , described as moderate, Quality is described as dull, and is localized to the face and right. Patient reports no radiation. Patient started experiencing this day(s) and it has been constant. No relieving factors improve symptom(s), No exacerbating factors reported . Patient notes nausea/vomiting. Patient did receive the following treatments prior to arrival, other (Started amoxicillin yesterday.) Related Data Home Medications Medication Instructions Recorded Confirmed norethindrone 1 mg-ethinyl 1 tab PO 1XD 03/08/22 03/08/22 estradiol 20 mcg (21)-iron 75 mg (7) tablet (Ana Lilia Fe 03/24 (28)) Allergies Allergy/AdvReac Type Severity Reaction Status Date / Time Sulfa (Sulfonamide Allergy Unverified 03/08/22 20:14 Antibiotics) General Stated Complaint: GenMedical SAUL: 3 Review of Systems Narrative: is sick with similar illness. No persistent cough after having influenza 2 weeks ago. No fever today. Positive diarrhea. 8 systems reviewed and otherwise negative PFSH All Active Problems (Updated 03/08/22 @ 20:40 by Abner Balbuena MD) Fracture of right great toe (Acute) Ankle sprain (Acute) Gastroenteritis (Acute) Social History Smoking/Tobacco Use Status: Never Smoking risk assessment performed?: Yes Alcohol Intake: current Alcohol Intake frequency: holidays/special occasions only Substance use type: does not use Do you feel safe at home: Yes Do you feel safe in your relationship?: Yes Exam Narrative Exam Narrative: GEN: awake, alert, oriented 3. Pleasant, well groomed, interactive. HEAD: Normocephalic, atraumatic ENT: Mucous membranes moist, oropharynx unremarkable, no swelling, TMs visualized and clear bilaterally external ear exam unremarkable EYES: PERRL, EOMI NECK: Full ROM, no BRIAN, no menigismus CHEST/RESP: Nontender, clear to auscultation bilateral, no wheeze/rhonchi/rales CARDIOVASCULAR: Regular and tachycardic, no murmur, rub ant. 2+ Rad pulse bilateral ABDOMEN: Soft, nontender, no mass. +Bowel sounds EXT: Full ROM, no edema, no rash Neuro: Grossly normal neurologic exam, conversant, interactive. Psych: Speech fluent, thoughts congruent, affect normal Course Vital Signs Vital signs: Vital Signs Temperature 37.0 C 03/08/22 18:50 Pulse 115 H 03/08/22 18:50 Respiratory Rate 18 03/08/22 18:50 Blood Pressure 152/105 H 03/08/22 18:50 Pulse Oximetry 98 03/08/22 18:50 Temperature 37.0 C 03/08/22 18:50 Temperature Source Oral 03/08/22 18:50 Pulse 115 H 03/08/22 18:50 Respiratory Rate 18 03/08/22 18:50 Respiratory Effort 03/08/22 18:55 Blood Pressure 152/105 H 03/08/22 18:50 Blood Pressure Position Sitting 03/08/22 18:50 Pulse Oximetry 98 03/08/22 18:50 Oxygen Delivery Method Room Air 03/08/22 18:50 Oxygen Flow Rate 0 03/08/22 18:50 Pain Level 8 03/08/22 18:50
[2022-03-08 19:29] LABS: Abs Immature Grans 0.02 10^3/uL (0.0-0.06); Absolute Basophil Count 0.03 10^3/uL (0.0-0.2); Absolute Eosinophil Count 0.08 10^3/uL (0.0-0.7); Absolute Lymphocyte Count 1.42 10^3/uL (1.2-3.4); Absolute Monocyte Count 0.49 10^3/uL (0.1-0.8); Absolute Neutrophil Count 6.73 10^3/uL (1.2-6.7); Basophils % 0.3; Eosinophils % 0.9; HCT 41.4 % (36.0-46.0); HGB 13.5 g/dL (11.2-15.7); Immature Grans % 0.2; Lymphocytes % 16.2; MCH 27.4 pg (27.0-33.0); MCHC 32.6 % (32.0-36.0); MCV 84 fL (80-95); MPV 11.5 fL (8.0-11.0); Monocytes % 5.6; Neutrophils % 76.8; Platelet Count 306 10^3/uL (130-400); RBC 4.92 10^6/uL (3.93-5.22); RDW 13.7 % (11.7-14.6); RDW-SD 42.5 fL; WBC 8.77 10^3/uL (4.4-10.8)
[2022-03-08] MEDS: Ondansetron 4 MG/2 ML VIAL IVP (19:41)
[2022-03-08] MEDS: Normal Saline 1,000 ML 1000 ML IV (19:41)
[2022-03-08] MEDS: Ketorolac 15 MG/ML VIAL IVP (19:42)
[2022-03-08 19:44] LABS: ALT 17 U/L (14-59); AST 18 U/L (15-37); Albumin 3.7 g/dL (3.4-5.0); Alkaline Phosphatase 105 U/L (46-116); Anion Gap 10.7 mmol/L (3-11); BUN 10 mg/dL (7-18); CO2 24.3 mmol/L (21.0-32.0); CREATININE 0.7 mg/dL (0.55-1.02); Calcium 8.6 mg/dL (8.5-10.1); Chloride 107 mmol/L (98-107); Estimated GFR 123.01 (mL/min/1.73m2); Glucose 88 mg/dL (74-106); Potassium 3.2 mmol/L (3.5-5.1); Sodium 142 mmol/L (136-145); Total Protein 7.7 g/dL (6.4-8.2)
[2022-03-08 20:07] VITALS: BP 114/59; PULSE 102; RESP 24; TEMP 37.2; O2SAT 99
[2022-03-08 20:53] VITALS: BP 121/69; PULSE 97; TEMP 37; O2SAT 96
[2022-03-08] MEDS: Acetaminophen 500 MG TAB 1000 MG PO (21:14)
[2022-03-08] MEDS: Ondansetron O.D.T. 4 MG TABEF, 3 TABS/BTL PO (21:14)
== END 2022-03-08 21:17 | disposition home or self-care (01) ==
PROVIDERS: Emergency Provider Emergency Medicine; PCP Physician Assistant Medical
DX: K52.89 Other specified noninfective gastroenteritis and colitis (principal); R00.0 Tachycardia, unspecified
CPT/HCPCS: 80053; 96361; 96374; 96375; 99284; 85025; J1885; J2405

== ENCOUNTER 2022-06-02 15:35 | Outpatient (CLI) | payer MEDICAID, SELFPAY ==
--- NOTE | 2022-06-02 | DI.RAD_ITS ---
Exam(s) XR FOOT LT COMPLETE EXAM: XR FOOT LT COMPLETE CLINICAL HISTORY: PAIN IN JOINT, ANKLE AND FOOT M25.579. TECHNIQUE: 2D digital imaging was performed. Three views. COMPARISON: No exams were available for comparison FINDINGS: BONES: No acute fracture is present. No bony destructive lesion is seen. JOINTS: No dislocation present. SOFT TISSUE: Normal. IMPRESSION: Unremarkable radiographs of the left foot. DATA REPOSITORY: RADIATION DOSE DELIVERED:
--- NOTE | 2022-06-02 16:28 | DI.RAD_ITS ---
Exam(s) XR ANKLE LT COMPLETE EXAM: XR ANKLE LT COMPLETE CLINICAL HISTORY: PAIN IN JOINT, ANKLE AND FOOT M25.579 TECHNIQUE: 2D digital imaging was performed. Three views. COMPARISON: CR XR ANKLE LT COMPLETE from 02/15/2021 FINDINGS: BONES: No acute fracture is present. No bony destructive lesion is seen. JOINTS:The ankle mortise is normally aligned. SOFT TISSUE: Normal. IMPRESSION: Unremarkable radiographs of the left ankle. DATA REPOSITORY: RADIATION DOSE DELIVERED:
== END 2022-06-02 15:55 ==
LOC: DI 15:39
PROVIDERS: PCP Physician Assistant Medical; Visit Provider Nurse Practitioner Family
DX: M25.572 Pain in left ankle and joints of left foot (principal); M79.672 Pain in left foot
CPT/HCPCS: 73610; 73630

== ENCOUNTER 2022-12-06 19:30 | Emergency (ER) | payer MEDICAID, SELFPAY ==
[2022-12-06 19:41] VITALS: BP 148/90; PULSE 120; RESP 18; TEMP 37.3; O2SAT 98
[2022-12-06 20:27] LABS: HGB 12.6 g/dL (11.2-15.7); MCH 28.1 pg (27.0-33.0); MCHC 33.2 % (32.0-36.0); MCV 85 fL (80-95); Platelet Count 251 10^3/uL (130-400); RBC 4.48 10^6/uL (3.93-5.22); RDW 13.5 % (11.7-14.6); RDW-SD 42.3 fL; WBC 10.83 10^3/uL (4.4-10.8)
--- NOTE | 2022-12-06 20:34 | ED.GENADUL_ITS ---
Discharge Plan Disposition Patient Disposition: Home Condition: Good Discharge Details Clinical Impression: Vaginal bleeding affecting early Primary Care Provider: Felisa Le ED Provider: Angelika Elena Home Meds and New Rx's Prescriptions: No Action norethindrone-e.estradiol-iron [Ana Lilia Fe 03/24 (28)] 1 mg-20 mcg (21)/75 mg (7) tablet 1 tab PO 1XD Patient Comments: TAKE ONE TABLET BY MOUTH EVERY DAY Discharge Instructions Instructions: Threatened Miscarriage (ED) Additional Instructions: Call your OB tonight to schedule an appointment to be seen first thing in the morning. If you are unable to see your OB tomorrow morning, return to [facility] for an ultrasound. Return to the emergency department for new or worsening symptoms including abdominal pain, feeling like you are going to pass out, heavy vaginal bleeding, or if you have any other concerns. Medical Decision Making 27yo F presenting for vaginal bleeding. Has been tying to conceive, reports being 7 weeks based on estimated date of conception (10/27/22), unknown LMP. Has not yet seen OB this , appointment scheduled for Sunday. No risk factors for ectopic . Tachycardiac on arrival to 120 however was crying at the time; HR improved to 105 without intervention. No abdominal ten denress on exam. Minimal vaginal bleeding, cervical os closed on exam, scant brown blood in vault, no tenderness. Labs reviewed as below, CBC reassuring, RH+. Beta hct 81,000. Ideally would get pelvic ultrasound to eval for location, however unable to obtain overnight. Beta hcg level reassuring against ectopic. Exam/symptoms not consistent with ruptured ectopic. Discussed with OB on air talent; patient appropriate for close followup in the am. Discussed with patient importance of being evalauted again in the morning with ultrasound, either at her OB in [place] or by return here to [facility]. Discharged home; discharge instructions including return precautions were reviewed with patient who verbalized understanding. All questions were answered and they are in full agreement with the plan. Lab Data Lab results reviewed: Yes I reviewed the patient's lab results. Labs: Laboratory Tests Range/Units 12/06/22 12/06/22 12/06/22 20:18 20:18 20:18 WBC (4.4-10.8) 10^3/uL 10.83 H RBC (3.93-5.22) 10^6/uL 4.48 Hgb (11.2-15.7) g/dL 12.6 Hct (36.0-46.0) % 38.0 MCV (80-95) fL 85 MCH (27.0-33.0) pg 28.1 MCHC (32.0-36.0) % 33.2 RDW (11.7-14.6) % 13.5 Plt Count (130-400) 10^3/uL 251 MPV (8.0-11.0) fL 11.0 Beta HCG, Quant (1-3) mIU/mL 10180 H Patient ABO/Rh O Positive Antibody Screen NEGATIVE HPI General Mode of arrival: ambulatory . Date/Time Provider Initiated Documentation: 12/06/22 19:33 . Limitations to Documentation: no limitations . Information obtained by: patient . HPI Narrative: 27yo F presenting for vaginal bleeding. Has been tying to conceive, reports being 7 weeks based on estimated date of conception (10/27/22), unknown LMP. Not doing IVF. Has not yet seen OB this , appointment scheduled for Sunday. 2nd , had some spotting in the first trimester with her first with her son (toddler present at bedside). This evening noted scant pinkish bleeding when up to the bathroom, did not resolve with wiping. No abdominal pain. No other vaginal discharge. No lightheadedness. No history of prior ectopic or tubal surgeries or PID. She is otherwise in her usual state of health. 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 Review of Systems Narrative: see HPI PFSH All Active Problems (Updated 12/06/22 @ 22:05 by Angelika Elena MD) Fracture of right great toe (Acute) Ankle sprain (Acute) Vaginal bleeding affecting early (Acute) Social History Smoking/Tobacco Use Status: Never Smoking risk assessment performed?: Yes Alcohol Intake: current Alcohol Intake frequency: holidays/special occasions only Substance use type: does not use Do you feel safe at home: Yes Do you feel safe in your relationship?: Yes Exam Narrative Exam Narrative: General: Alert, well appearing, well nourished, tearful Head: Normocephalic, atraumatic Neck: Trachea midline, Neck supple. ENT: MMM. Cardiac: RRR, no murmurs appreciated Resp: No respiratory distress. CTAB. Abd: Soft, non-distended, nontender : No suprapubic tenderness. Extremities: No deformities. No peripheral edema. Neurologic: GCS 15. Moves all extremities freely against gravity Pelvic: Normal external genitalia with no lesions. Normal vaginal mucousa. Scant brown blood in the vaginal vault. Cervix pink, no discharge from cervical os, cervix closed. Uterus and adenxa nontender with no massess palpated. No cervical motion tenderness. Course Vital Signs Vital signs: Vital Signs Temperature 37.3 C 12/06/22 19:41 Pulse 120 H 12/06/22 19:41 Respiratory Rate 18 12/06/22 19:41 Blood Pressure 148/90 H 12/06/22 19:41 Pulse Oximetry 98 12/06/22 19:41 Temperature 37.3 C 12/06/22 19:41 Pulse 120 H 12/06/22 19:41 Respiratory Rate 18 12/06/22 19:41 Respiratory Effort Normal 12/06/22 19:45 Blood Pressure 148/90 H 12/06/22 19:41 Pulse Oximetry 98 12/06/22 19:41 Oxygen Delivery Method Room Air 12/06/22 19:41 Oxygen Flow Rate 0 12/06/22 19:41 Pain Level 2 12/06/22 19:41 Lab/Test Results Lab/Test Results: Laboratory Tests Range/Units 12/06/22 20:18 WBC (4.4-10.8) 10^3/uL 10.83 H RBC (3.93-5.22) 10^6/uL 4.48 Hgb (11.2-15.7) g/dL 12.6 Hct (36.0-46.0) % 38.0 MCV (80-95) fL 85 MCH (27.0-33.0) pg 28.1 MCHC (32.0-36.0) % 33.2 RDW (11.7-14.6) % 13.5 Plt Count (130-400) 10^3/uL 251 MPV (8.0-11.0) fL 11.0
[2022-12-06 21:05] VITALS: BP 135/62; PULSE 105; O2SAT 100; O2SAT 98
[2022-12-06 21:10] VITALS: O2SAT 100
[2022-12-06 22:14] VITALS: BP 135/62; PULSE 105; RESP 18; TEMP 37.3; O2SAT 100
== END 2022-12-06 22:15 | disposition home or self-care (01) ==
PROVIDERS: Emergency Provider Student in an Organized Health Care Education/Training Program; PCP Physician Assistant Medical
DX: O20.0 Threatened abortion (principal); Z3A.01 Less than 8 weeks gestation of pregnancy
CPT/HCPCS: 85027; 86850; 86900; 86901; 99283; 84702; 99282

== ENCOUNTER 2023-05-13 11:21 | Emergency (ER) | payer MEDICAID, SELFPAY ==
[2023-05-13 11:29] VITALS: BP 114/60; PULSE 130; RESP 16; TEMP 37.5; O2SAT 97
[2023-05-13] MEDS: Ondansetron O.D.T. 4 MG TABEF PO (12:17)
[2023-05-13] MEDS: Normal Saline 1,000 ML 1000 ML IV (12:17)
[2023-05-13 12:33] LABS: Abs Immature Grans 0.03 10^3/uL (0.0-0.06); Absolute Basophil Count 0.04 10^3/uL (0.0-0.2); Absolute Eosinophil Count 0.16 10^3/uL (0.0-0.7); Absolute Lymphocyte Count 1.18 10^3/uL (1.2-3.4); Absolute Monocyte Count 0.48 10^3/uL (0.1-0.8); Absolute Neutrophil Count 7.72 10^3/uL (1.2-6.7); Basophils % 0.4; Eosinophils % 1.7; HCT 38.5 % (36.0-46.0); HGB 12.4 g/dL (11.2-15.7); Immature Grans % 0.3; Lymphocytes % 12.3; MCHC 32.2 % (32.0-36.0); MCV 87 fL (80-95); MPV 11.1 fL (8.0-11.0); Neutrophils % 80.3; Platelet Count 227 10^3/uL (130-400); RBC 4.43 10^6/uL (3.93-5.22); RDW 14.4 % (11.7-14.6); RDW-SD 46.2 fL; WBC 9.61 10^3/uL (4.4-10.8)
[2023-05-13 12:43] LABS: ALT 14 U/L (14-59); AST 17 U/L (15-37); Albumin 2.8 g/dL (3.4-5.0); Alkaline Phosphatase 91 U/L (46-116); Anion Gap 9.8 mmol/L (3-11); BUN 6 mg/dL (7-18); Bilirubin, Total 0.5 mg/dL (0.2-1.0); CO2 24.2 mmol/L (21.0-32.0); CREATININE 0.7 mg/dL (0.55-1.02); Calcium 8.5 mg/dL (8.5-10.1); Chloride 106 mmol/L (98-107); Estimated GFR 122.25 (mL/min/1.73m2); Glucose 94 mg/dL (74-106); Lipase 23 U/L (16-77); Magnesium 1.6 mg/dL (1.8-2.4); Potassium 3.7 mmol/L (3.5-5.1); Sodium 140 mmol/L (136-145); Total Protein 6.5 g/dL (6.4-8.2)
[2023-05-13] MEDS: Magnesium Gluconate 500 MG TAB PO (13:00)
[2023-05-13 13:47] LABS: Bilirubin Negative (Negative); Blood Trace-intact (Negative); Clarity Clear (Clear); Glucose Negative (Negative); Ketones >=160 mg/dL (Negative); Leukocyte Esterase Negative (Negative); Nitrite Negative (Negative); Specific Gravity 1.025 (1.005-1.025); Urobilinogen 0.2 mg/dL (Up to 0.2); pH 5.5 (5-8)
[2023-05-13 13:54] LABS: WBC 0-2 HPF (0-5)
[2023-05-13 13:55] LABS: Bacteria Rare HPF (Negative); C & S Indicated? No; Casts Negative LPF (Negative); Crystals Negative HPF (Negative); Epithelial Cells Few HPF (Negative); Mucus Moderate (Negative)
--- NOTE | 2023-05-13 14:19 | ED.GENADUL_ITS ---
Discharge Plan Disposition Patient Disposition: Home Condition: Improving Discharge Details Clinical Impression: Gastroenteritis Primary Care Provider: Felisa Le ED Provider: Anson Burnham Home Meds and New Rx's Prescriptions: No Action norethindrone-e.estradiol-iron [Ana Lilia Fe 03/24 (28)] 1 mg-20 mcg (21)/75 mg (7) tablet 1 tab PO 1XD Hold Instructions: Changed by Provider Patient Comments: TAKE ONE TABLET BY MOUTH EVERY DAY Discharge Instructions Instructions: Gastroenteritis (ED) Additional Instructions: As discussed you may use the dissolvable Zofran as needed for further nausea or vomiting. Please stay well-hydrated and slowly advance your diet as tolerated. Return to the emergency department immediately for any new or significant worsening of symptoms otherwise follow-up with your primary care provider or OB provider as needed. Stand Alone Forms: Work Release Referrals: Felisa Le [Primary Care Provider] - (As needed for reassessment) Discharge Data Discharge Date/Time-TO BE ENTERED AT DEPARTURE: 05/13/23 14:31 HPI General Mode of arrival: ambulatory . Date/Time Provider Initiated Documentation: 05/13/23 11:41 . Limitations to Documentation: no limitations . Information obtained by: patient and RN notes reviewed . History of Present Illness 27 year old F presents to the emergency department with the chief complaint of Nausea vomiting diarrhea, described as moderate, Quality is described as aching, and is localized to the abdomen. Patient started experiencing this hour(s) (5) and it has been constant. No relieving factors improve symptom(s), Eating worsens symptoms . Patient did receive the following treatments prior to arrival, none Related Data Home Medications Medication Instructions Recorded Confirmed norethindrone 1 mg-ethinyl 1 tab PO 1XD 03/08/22 05/13/23 estradiol 20 mcg (21)-iron 75 mg (7) tablet (Ana Lilia Fe 03/24 ()) Allergies Allergy/AdvReac Type Severity Reaction Status Date / Time Sulfa (Sulfonamide Allergy Nausea Unverified 05/13/23 11:27 Antibiotics) General Stated Complaint: Abd Prob SAUL: 3 Review of Systems Constitutional Constitutional: Denies chills, Denies fever(s) and Reports poor appetite Cardiovascular Cardiovascular: Denies chest pain and Denies dyspnea Respiratory Respiratory: Denies cough and Denies dyspnea Gastrointestinal Gastrointestinal: Reports as per HPI, Reports abdominal pain, Denies melena, Denies change in bowel habits, Denies constipation, Reports diarrhea, Reports nausea and Reports vomiting Genitourinary Genitourinary: Denies hematuria, Denies dysuria, Denies pelvic pain and Denies vaginal discharge Integumentary/Breasts Skin/Breast: Denies rash Exam Const General: cooperative Orientation: alert, awake and oriented x3 Resp Effort & Inspection: normal respiratory effort and able to speak in complete sen tences Auscultation: clear to auscultation bilaterally Cardio Rate: tachycardic Rhythm: regular rhythm Heart Sounds: S1 normal and S2 normal GI Inspection: other (Obvious ) Palpation: soft, not firm, no guarding and nontender Auscultation: normal bowel sounds Back/Spine/Pelvis Back: no CVA tenderness Neuro General: patient alert, patient awake, patient oriented x3, gait normal and moves all extremities Course Vital Signs Vital signs: Vital Signs Temperature 37.5 C 05/13/23 11:29 Pulse 130 H 05/13/23 11:29 Respiratory Rate 16 05/13/23 11:29 Blood Pressure 114/60 05/13/23 11:29 Pulse Oximetry 97 05/13/23 11:29 Temperature 37.5 C 05/13/23 11:29 Temperature Source Temporal Artery Scan 05/13/23 11:29 Pulse 130 H 05/13/23 11:29 Respiratory Rate 16 05/13/23 11:29 Respiratory Effort Normal, Non-Labored 05/13/23 11:31 Blood Pressure 114/60 05/13/23 11:29 Blood Pressure Position Sitting 05/13/23 11:29 Pulse Oximetry 97 05/13/23 11:29 Oxygen Delivery Method Room Air 05/13/23 11:29 Oxygen Flow Rate 0 05/13/23 11:29 Pain Level 8 05/13/23 11:29 Comment nausea and GI cramping. 05/13/23 11:29 Lab/Test Results Lab/Test Results: Laboratory Tests Range/Units 05/13/23 05/13/23 12:12 13:37 WBC (4.4-10.8) 10^3/uL 9.61 RBC (3.93-5.22) 10^6/uL 4.43 Hgb (11.2-15.7) g/dL 12.4 Hct (36.0-46.0) % 38.5 MCV (80-95) fL 87 MCH (27.0-33.0) pg 28.0 MCHC (32.0-36.0) % 32.2 RDW (11.7-14.6) % 14.4 Plt Count (130-400) 10^3/uL 227 MPV (8.0-11.0) fL 11.1 H Immature Gran % 0.3 Neutrophils % 80.3 Lymphocytes % 12.3 Monocytes % 5.0 Eosinophils % 1.7 Basophils % 0.4 Nucleated RBC % (0.0-0.3) % 0.0 Absolute Neutrophils (1.2-6.7) 10^3/uL 7.72 H Absolute Lymphocytes (1.2-3.4) 10^3/uL 1.18 L Absolute Monocytes (0.1-0.8) 10^3/uL 0.48 Absolute Eosinophils (0.0-0.7) 10^3/uL 0.16 Absolute Basophils (0.0-0.2) 10^3/uL 0.04 Sodium (136-145) mmol/L 140 Potassium (3.5-5.1) mmol/L 3.7 Chloride (98-107) mmol/L 106 Carbon Dioxide (21.0-32.0) mmol/L 24.2 Anion Gap (3-11) mmol/L 9.8 BUN (7-18) mg/dL 6 L Creatinine (0.55-1.02) mg/dL 0.7 Est GFR (CKD-EPI 2020) (mL/min/1.73m2) 122.25 Glucose (74-106) mg/dL 94 Calcium (8.5-10.1) mg/dL 8.5 Magnesium (1.8-2.4) mg/dL 1.6 L Total Bilirubin (0.2-1.0) mg/dL 0.5 AST (15-37) U/L 17 ALT (14-59) U/L 14 Alkaline Phosphatase (46-116) U/L 91 Total Protein (6.4-8.2) g/dL 6.5 Albumin (3.4-5.0) g/dL 2.8 L Lipase (16-77) U/L 23 Urine Color (Yellow) Yellow Urine Clarity (Clear) Clear Urine pH (5-8) 5.5 Ur Specific [place] (1.005-1.025) 1.025 Urine Protein (Neg-Trace) mg/dL Negative Urine Ketones (Negative) mg/dL >=160 H Urine Blood (Negative) Trace-intact H Urine Nitrite (Negative) Negative Urine Bilirubin (Negative) Negative Urine Urobilinogen (Up to 0.2) mg/dL 0.2 Ur Leukocyte Esterase (Negative) Negative Urine RBC (0-2) HPF 3-5 H Urine WBC (0-5) HPF 0-2 Ur Epithelial Cells (Negative) HPF Few Urine Crystals (Negative) HPF Negative Urine Bacteria (Negative) HPF Rare Urine Casts (Negative) LPF Negative Urine Mucus (Negative) Moderate Ur Culture Indicated? No Urine Glucose (Negative) mg/dL Negative Medical Decision Making Patient presenting to the emergency department for chief complaint of nausea vomiting diarrhea. Patient reports around 5 AM the symptoms started and she has vomited 3-4 times and had multiple times of diarrhea. Patient denies any fever or chills, cough, or other symptoms. Patient questions possible foodborne illness given that they did eat out last night. Patient is 7 months and states positive movement, denies any vaginal symptoms, denies any urinary symptoms. Patient has no other significant contributing past medical history. Physical exam shows no abdominal tenderness, palpable positive movement, no CVA tenderness, slight tachycardia otherwise unremarkable exam. Given that patient is will check labs for electrolyte abnormalities, CBC and urinalysis. Pending results will give patient dose of Zofran after discussion of risk versus benefit which patient is agreeable to receiving this medication and will give liter of fluids. heart tones were performed and are within appropriate range. Reviewed patient's labs and CBC is nondiagnostic with no emergent findings, CMP does show slightly decreased BUN at 6 magnesium 1.6 and albumin of 2.8, lipase is normal LFTs are otherwise within normal range. Will orally replete magnesium. Urinalysis does show ketones and blood but otherwise negative. Patient reassessed and stated significant improvement was able to tolerate p.o. intake and was requesting discharge. I feel this is reasonable given resolution of symptoms and patient to follow-up on outpatient basis. She was given limited supply of Zofran to go home and encouraged to stay hydrated. Patient had resolution of tachycardia and was normal tensive at discharge. After discussion of diagnosis and plan of care patient has no further needs, questions, or concerns and states clear understanding to return to the emergency department for any worsening symptoms. This documentation was generated using SlapVid dictation system, please disregard any oddities of phrase or misspellings. Lab Data Lab results reviewed: Yes I reviewed the patient's lab results. Quality:SDOH Health Related Social Needs: No Data to Display PFSH All Active Problems Gastroenteritis (Acute) Ankle sprain (Acute) Fracture of right great toe (Acute) Social History Smoking/Tobacco Use Status: Never Smoking risk assessment performed?: Yes Alcohol Intake: current Alcohol Intake frequency: holidays/special occasions only Drug use: Never Substance use type: does not use Housing: apartment Do you feel safe at home: Yes Do you feel safe in your relationship?: Yes
[2023-05-13] MEDS: Ondansetron O.D.T. 4 MG TABEF, 3 TABS/BTL PO (14:34)
[2023-05-13 14:35] VITALS: BP 121/71; PULSE 78; RESP 18; TEMP 36.7; O2SAT 96
== END 2023-05-13 14:31 | disposition home or self-care (01) ==
PROVIDERS: Emergency Provider Nurse Practitioner Family; PCP Physician Assistant Medical
DX: R11.2 Nausea with vomiting, unspecified (principal); R19.7 Diarrhea, unspecified; K52.9 Noninfective gastroenteritis and colitis, unspecified; Z3A.28 28 weeks gestation of pregnancy
CPT/HCPCS: 80053; 83690; 96360; 99284; 81003; 81015; 83735; 85025; 99283

== ENCOUNTER → 2023-06-20 01:07 | Outpatient (CLI) | payer MEDICAID, SELFPAY ==
--- NOTE | 2023-06-20 | DI.US_ITS ---
Exam(s) US OB F/U FACIAL/LVOT/RVOT EXAM: US OB F/U FACIAL/LVOT/RVOT CLINICAL HISTORY: F/U LOW LYING PLACENTA,[id number]. COMPARISON: No exams were available for comparison TECHNIQUE: Transabdominal obstetrical ultrasound performed. FINDINGS: Sonographic images demonstrate a single intrauterine gestation in cephalic position. Placenta: Posterior. The edge of the placenta is measured at 2.7 cm from the internal os. The plac enta is not well seen on the images provided. Cervical length 5.1 cm. Cervix appears normal and remains closed. IMPRESSION: Posterior placenta with the tip measuring 2.7 cm from the internal os. No prior comparison exams piter ilable. DATA REPOSITORY:
--- NOTE | 2023-06-20 | DI.US_ITS ---
Exam(s) US ABDOMEN LIMITED EXAM: US ABDOMEN LIMITED CLINICAL HISTORY: RUQ PAIN, INTERMITTENT, R10.11 TECHNIQUE: Ultrasound abdomen performed using standard protocol. COMPARISON: US US OB F/U FACIAL/LVOT/RVOT from 06/20/2023 FINDINGS: LIVER: Normal size. Normalechogenicity. No focal liver lesions are seen.. GALLBLADDER: No evidence of cholelithiasis. No evidence of wall thickening. No pericholecystic fluid identified. CHARLES'S SIGN: Negative. BILIARY SYSTEM: No intrahepatic or extrahepatic biliary ductal dilation. Common bile duct not well s een. Obscured by bowel gas. RIGHT KIDNEY: Normal size. No evidence of renal calculi. No evidence of hydronephrosis. No suspicious renal mass. No cyst identified. PANCREAS: Mostly obscured by bowel gas. ABDOMINAL AORTA AND IVC: Visualized portions normal caliber. ASCITES: None seen. IMPRESSION: Normal sonographic appearance of the right upper quadrant. DATA REPOSITORY:
== END ==
PROVIDERS: PCP Physician Assistant Medical; Visit Provider Nurse Practitioner Women's Health
DX: O43.193 Other malformation of placenta, third trimester (principal); Z34.93 Encounter for supervision of normal pregnancy, unspecified, third trimester; R10.11 Right upper quadrant pain
CPT/HCPCS: 76815; 76705

== ENCOUNTER 2024-03-19 07:42 | Emergency (ER) | payer MEDICAID, SELFPAY ==
[2024-03-19 07:43] VITALS: BP 130/80; PULSE 104; RESP 15; TEMP 36.3; O2SAT 99
[2024-03-19 07:49] VITALS: BP 130/80; PULSE 104; RESP 15; TEMP 36.3; O2SAT 99
--- NOTE | 2024-03-19 08:18 | ED.GENADUL_ITS ---
Discharge Plan Disposition Patient Disposition: Home Condition: Stable Discharge Details Clinical Impression: Pharyngitis Primary Care Provider: Felisa Le ED Provider: Tylor Malave Home Meds and New Rx's Prescriptions: New amoxicillin 500 mg capsule 500 mg PO BID 10 Days Qty: 20 0RF Continued norethindrone-e.estradiol-iron [Ana Lilia Fe 03/24 (28)] 1 mg-20 mcg (21)/75 mg (7) tablet 1 tab PO 1XD Patient Comments: TAKE ONE TABLET BY MOUTH EVERY DAY Discharge Instructions Instructions: Amoxicillin, Sore Throat, Adult ED Additional Instructions: You were seen in the emergency department for your unilateral sore throat with white exudate on one of your tonsils, you do not have a respiratory infection I think this is strep pharyngitis, your rapid strep was negative but likely your culture will be positive regardless I think we will treat with a course of amoxicillin, please return to work tomorrow, you will be contagious after 24 hours on antibiotics. Please use therapeutic dosing of Tylenol (acetamenophen) & Advil (ibuprofen) in an alternating fashion as follows: Take 1000mg of Tylenol every 6 hours without missing doses- that is 4 times per day. [place] in between the Tylenol dosings, take 400-600mg of Advil also on a 6 hour schedule, that is also 4 times per day. The daily maximum dosing of Tylenol is 4000mg, and the daily maximum dosing of Advil is 2400mg. This is safe to do for weeks. Please note that some common cold medications & prescription pain medications may contain acetamenophen and you need to read OTC drug labels and factor that in to maximum daily dosings. He is to eat with honey for symptomatic relief of sore throat, perform salt water gargles with warm salt water 3 times per day. Referrals: Felisa Le [Primary Care Provider] - Discharge Data Discharge Date/Time-TO BE ENTERED AT DEPARTURE: 03/19/24 08:53 HPI General Date/Time Provider Initiated Documentation: 03/19/24 08:18 . HPI Narrative: 28 year-old female presents to ED today by POV/ambulating with a chief complaint of sore throat, L tonsillar pain with onset for the past 3 weeks. Quality described as L tonsillar pain, no radiation to cough, shortness of breath, trismus, vocal changes, excessive drooling, neck swelling. Severity is described as moderate. Palliating factors include nothing specific. Provoking factors include nothing specific. Patient not anticoagulated. Related Data Home Medications ?Medication ?Instructions ?Recorded ?Confirmed norethindrone 1 mg-ethinyl 1 tab PO 1XD 03/08/22 03/19/24 estradiol 20 mcg (21)-iron 75 mg (7) tablet (Ana Lilia Fe 03/24 (28)) amoxicillin 500 mg capsule 500 mg PO BID pharyngitis 10 days 03/19/24 #20 caps Previous Rx's ?Medication ?Instructions ?Recorded amoxicillin 500 mg capsule 500 mg PO BID pharyngitis 10 days 03/19/24 #20 caps Allergies Allergy/AdvReac Type Severity Reaction Status Date / Time Sulfa (Sulfonamide Allergy Nausea Unverified 03/19/24 07:50 Antibiotics) General Stated Complaint: Sorethroat SAUL: 4 Review of Systems All systems reviewed & are unremarkable except as noted in HPI and below Exam Narrative Exam Narrative: GENERAL APPEARANCE: Well-nourished, non-toxic, awake and alert, atraumatic, no acute distress. SKIN: Warm, pink, dry, intact, without rashes/lesions/ulcerations. HEAD: Normocephalic, atraumatic, normal hair distribution for gender/age. EYES: Normal conjunctiva, no exudates on lids/lashes. ENT: Nares patent, no circumoral cyanosis, no facial swelling, left tonsillar erythema with exudate, uvula midline, no trismus, managing secretions well, no neck swelling NECK: Supple, trachea midline, painless cervical ROM. LUNGS/CHEST: Non-labored respirations, normal A/P diameter, symmetrical expansion, no chest wall deformity HEART (CV/PV): No peripheral edema, no JVD. ABDOMEN: Soft, non-distended, no guarding. MSK: Normal ROM, no swelling/deformity to bilateral UEs or LEs, moving all extremities without weakness, no cyanosis, spine midline without tenderness, normal curvature. NEURO: Mental Status AAOx4 - alert to person, place, time, events No facial droop, no forehead involvement. Motor: No focal weakness - strength 5/5 in bilateral UEs and LEs, proximal and distal, symmetric. Sensory: sensation intact to light touch globally. Gait normal: patient ambulated without ataxia into ED room. PSYCH: euthymic, cooperative, pleasant, appropriate speech Course Vital Signs Vital signs: Vital Signs Temperature 36.3 C L 03/19/24 07:43 Pulse 104 H 03/19/24 07:43 Respiratory Rate 15 03/19/24 07:43 Blood Pressure 130/80 03/19/24 07:43 Pulse Oximetry 99 03/19/24 07:43 Temperature 36.3 C L 03/19/24 07:49 Temperature Source Temporal Artery Scan 03/19/24 07:49 Pulse 104 H 03/19/24 07:49 Respiratory Rate 15 03/19/24 07:49 Blood Pressure 130/80 03/19/24 07:49 Blood Pressure Position Sitting 03/19/24 07:49 Pulse Oximetry 99 03/19/24 07:49 Oxygen Delivery Method Room Air 03/19/24 07:49 Oxygen Flow Rate 0 03/19/24 07:49 Pain Level 10 03/19/24 07:49 Lab/Test Results Lab/Test Results: 03/19/24 07:47 Tonsil - Not Specified Group A Streptococcus Culture - Pending POC Strep Test-FABBY(Rapid) Start: 03/19/24 08:07 Freq: .Rapid Strep Test Status: Active Protocol: Document 03/19/24 08:09 JAQUAN (Rec: 03/19/24 08:09 JAQUAN [id number]) Strep test-FABBY(Rapid)-POC POC-Strep test-FABBY (Rapid) Negative POC-Strep test-FABBY (Rapid) Negative Medical Decision Making This dictation utilizes [id number] dictation software and may contain unedited grammatical errors. 28 year-old female presents to ED today by POV/ambulating with a chief complaint of sore throat, L tonsillar pain with onset for the past 3 weeks. Quality described as L tonsillar pain, no radiation to cough, shortness of breath, trism us, vocal changes, excessive drooling, neck swelling. Severity is described as moderate. Palliating factors include nothing specific. Provoking factors include nothing specific. Patients' medical history: Noncontributory, otherwise healthy. Family and social history: Noncontributory. Pertinent exam findings / vital signs include left tonsillar erythema with exudate, uvula midline, no trismus, managing secretions well, no neck swelling. Differential / pathologies of concern include likely strep pharyngitis, unlikely deep space infection. Diagnostic studies of: -Rapid strep-rapid is negative treating empirically. Interventions of: -Amoxicillin Rx. ED Course/Assessment/Plan: 28-year-old female presents with 3 weeks of intermittent throat pain and has a left tonsillar exudative pharyngitis without symptoms of URI, starting empiric treatment for strep pharyngitis, recommend salt water gargles and tea with honey as well as therapeutic dosing Tylenol and ibuprofen. Findings not consistent with peritonsillar abscess, retropharyngeal abscess. Disposition of pharyngitis. Patient verbalized understanding of the plan and return to ED criteria and engaged in shared decision making. Medical Records Medical records reviewed: Yes I reviewed the patient's medical records. Lab Data Lab results reviewed: Yes I reviewed the patient's lab results. Labs: 03/19/24 07:47 Tonsil - Not Specified Group A Streptococcus Culture - Pen ding Quality:SDOH Health Related Social Needs: No Data to Display PFSH All Active Problems (Updated 03/19/24 @ 08:20 by EUSEBIO Payne) Pharyngitis (Acute) Ankle sprain (Acute) Fracture of right great toe (Acute) Social History Smoking/Tobacco Use Status: Never Smoking risk assessment performed?: Yes Alcohol Intake: current Alcohol Intake frequency: holidays/special occasions only Drug use: Never Substance use type: does not use Housing: apartment Do you feel safe at home: Yes Do you feel safe in your relationship?: Yes
[2024-03-19 08:24] VITALS: BP 135/72; PULSE 100; RESP 16; TEMP 36.6; O2SAT 98
== END 2024-03-19 08:53 | disposition home or self-care (01) ==
PROVIDERS: Emergency Provider Physician Assistant; PCP Physician Assistant Medical
DX: J02.9 Acute pharyngitis, unspecified (principal)
CPT/HCPCS: 87880; 99283; 87081

== ENCOUNTER 2024-04-13 17:13 | Emergency (ER) | payer MEDICAID, SELFPAY ==
[2024-04-13 17:21] VITALS: BP 118/70; PULSE 97; RESP 16; TEMP 37.3; O2SAT 97
[2024-04-13 18:35] LABS: COVID-19 PCR Negative (Negative); Influenza A PCR Positive (Negative); Influenza B PCR Negative (Negative); RSV PCR Negative (Negative)
[2024-04-13 18:51] LABS: Source Nasopharynx
--- NOTE | 2024-04-13 18:59 | ED.GENADUL_ITS ---
Discharge Plan Disposition Patient Disposition: Home Condition: Stable Discharge Details Clinical Impression: Influenza A Primary Care Provider: Felisa Le ED Provider: Tylor Malave Home Meds and New Rx's Prescriptions: New oseltamivir 75 mg capsule 75 mg PO BID 5 Days Qty: 10 0RF Continued norethindrone-e.estradiol-iron [Ana Lilia Fe [birth year] ([birth year])] 1 mg-20 mcg (21)/75 mg (7) tablet 1 tab PO 1XD Patient Comments: TAKE ONE TABLET BY MOUTH EVERY DAY Discharge Instructions Instructions: Oseltamivir, Flu, Adult ED Additional Instructions: You were seen in the emergency department for your upper respiratory infection, you tested positive for influenza A. Please use therapeutic dosing of Tylenol (acetamenophen) & Advil (ibuprofen) in an alternating fashion as follows: Take 1000mg of Tylenol every 6 hours without missing doses- that is 4 times per day. Long-Term in between the Tylenol dosings, take 400-600mg of Advil also on a 6 hour schedule, that is also 4 times per day. The daily maximum dosing of Tylenol is 4000mg, and the daily maximum dosing of Advil is 2400mg. This is safe to do for weeks. Please note that some common cold medications & prescription pain medications may contain acetamenophen and you need to read OTC drug labels and factor that in to maximum daily dosings. Please take the prescribed Tamiflu sent to your pharmacy as described, please return for any severe increase in respiratory distress or profound lethargy. Stand Alone Forms: Work Release Referrals: Felisa Le [Primary Care Provider] - Discharge Data Discharge Date/Time-TO BE ENTERED AT DEPARTURE: 04/13/24 20:21 HPI General Date/Time Provider Initiated Documentation: 04/13/24 17:43 . 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 Quality described as generalized cough and cold, no radiation to respiratory distress, nausea vomiting, chest pain, endorses body aches and mild low-grade fevers. Severity is described as moderate. Palliating factors include OTC analgesics with some relief. Provoking factors include nothing specific. Patient not anticoagulated. Related Data Home Medications ?Medication ?Instructions ?Recorded ?Confirmed norethindrone 1 mg-ethinyl 1 tab PO 1XD 03/08/22 04/13/24 estradiol 20 mcg (21)-iron 75 mg (7) tablet (Ana Lilia Fe [birth year] ([birth year])) oseltamivir 75 mg capsule 75 mg PO BID 5 days #10 caps 04/13/24 Previous Rx's ?Medication ?Instructions ?Recorded oseltamivir 75 mg capsule 75 mg PO BID 5 days #10 caps 04/13/24 Allergies Allergy/AdvReac Type Severity Reaction Status Date / Time Sulfa (Sulfonamide Allergy Nausea Verified 04/13/24 17:28 Antibiotics) prednisone AdvReac Intermediate Itching Verified 04/13/24 17:28 General Stated Complaint: RespSymp SAUL: 4 Review of Systems All systems reviewed & are unremarkable except as noted in HPI and below Exam Narrative Exam Narrative: GENERAL APPEARANCE: Well-nourished, non-toxic, awake and alert, atraumatic, no acute distress. SKIN: Warm, pink, dry, intact, without rashes/lesions/ulcerations. HEAD: Normocephalic, atraumatic, normal hair distribution for gender/age. EYES: Normal conjunctiva, no exudates on lids/lashes. ENT: Nares patent, no circumoral cyanosis, no facial swelling NECK: Supple, trachea midline, painless cervical ROM. LUNGS/CHEST: Lungs CTA bilaterally, non-labored respirations, normal A/P diameter, symmetrical expansion, no chest wall deformity HEART (CV/PV): Regular rate and rhythm without murmur, no peripheral edema, no JVD. ABDOMEN: Soft, non-distended, no guarding. MSK: Normal ROM, no swelling/deformity to bilateral UEs or LEs, moving all extremities without weakness, no cyanosis, spine midline without tenderness, normal curvature. NEURO: Mental Status AAOx4 - alert to person, place, time, events No facial droop, no forehead involvement. Motor: No focal weakness - strength 5/5 in bilateral UEs and LEs, proximal and distal, symmetric. Sensory: sensation intact to light touch globally. Gait normal: patient ambulated without ataxia into ED room. PSYCH: euthymic, cooperative, pleasant, appropriate speech Course Vital Signs Vital signs: Vital Signs Temperature 37.3 C 04/13/24 17:21 Pulse 97 H 04/13/24 17:21 Respiratory Rate 16 04/13/24 17:21 Blood Pressure 118/70 04/13/24 17:21 Pulse Oximetry 97 04/13/24 17:21 Temperature 37.3 C 04/13/24 17:21 Temperature Source Oral 04/13/24 17:21 Pulse 97 H 04/13/24 17:21 Respiratory Rate 16 04/13/24 17:21 Blood Pressure 118/70 04/13/24 17:21 Blood Pressure Position Sitting 04/13/24 17:21 Pulse Oximetry 97 04/13/24 17:21 Oxygen Delivery Method Room Air 04/13/24 17:21 Oxygen Flow Rate 0 04/13/24 17:21 Lab/Test Results Lab/Test Results: Laboratory Tests Range/Units 04/13/24 17:39 COVID-19 Source Nasopharynx SARS-CoV-2 (PCR) (Negative) Negative Influenza Type A (PCR) (Negative) Positive A Influenza Type B (PCR) (Negative) Negative RSV (PCR) (Negative) Negative Medical Decision Making This dictation utilizes [id number] dictation software and may contain unedited grammatical errors. 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 Quality described as generalized cough and cold, no radiation to respiratory distress, nausea vomiting, chest pain, endorses body aches and mild low-grade fevers. Severity is described as moderate. Palliating factors include OTC analgesics with some relief. Provoking factors include nothing specific. Patients' medical history: Noncontributory. Family and social history: Works at a daycare, has many close contacts that are sick with flu and RSV. Pertinent exam findings / vital signs include lungs CTA, nontoxic vitals, no acute respiratory distress. Differential / pathologies of concern include viral syndrome, influenza, unlikely pneumonia or respiratory distress. Diagnostic studies of: -COVID/flu/RSV PCR. Interventions of: -Rx for Tamiflu. ED Course/Assessment/Plan: 28-year-old female presents with mild respiratory infection requesting flu testing, works in a daycare and is positive for influenza A, also wants her children tested, Rx for Tamiflu and recommend [id number] cold medicines, strict return criteria for any severe respiratory distress, intractable nausea vomiting or other emergent concerns. Findings not consistent with hypoxic respiratory failure, pneumonia, sepsis, high fever. Disposition of influenza A. Patient verbalized understanding of the plan and return to ED criteria and engaged in shared decision making. Medical Records Medical records reviewed: Yes I reviewed the patient's medical records. Lab Data Lab results reviewed: Yes I reviewed the patient's lab results. Labs: Laboratory Tests Range/Units 04/13/24 17:39 COVID-19 Source Nasopharynx SARS-CoV-2 (PCR) (Negative) Negative Influenza Type A (PCR) (Negative) Positive A Influenza Type B (PCR) (Negative) Negative RSV (PCR) (Negative) Negative Quality:SDOH Health Related Social Needs: No Data to Display PFSH All Active Problems (Updated 04/13/24 @ 19:04 by EUSEBIO Payne) Influenza A (Acute) Pharyngitis (Acute) Ankle sprain (Acute) Fracture of right great toe (Acute) Social History Smoking/Tobacco Use Status: Never Smoking risk assessment performed?: Yes Alcohol Intake: current Alcohol Intake frequency: holidays/special occasions o nly Drug use: Never Substance use type: does not use Housing: apartment Do you feel safe at home: Yes Do you feel safe in your relationship?: Yes
== END 2024-04-13 20:21 | disposition home or self-care (01) ==
PROVIDERS: Emergency Provider Physician Assistant; PCP Physician Assistant Medical
DX: J09.X2 Influenza due to identified novel influenza A virus with other respiratory manifestations (principal); R05.1 Acute cough
CPT/HCPCS: 87637; 99283

== ENCOUNTER 2024-06-09 17:10 | Emergency (ER) | payer MEDICAID, SELFPAY ==
[2024-06-09 17:17] VITALS: BP 127/78; PULSE 93; RESP 16; TEMP 36.8; O2SAT 98
--- NOTE | 2024-06-09 17:45 | DI.RAD_ITS ---
Exam(s) XR KNEE RT 3V AP,LAT,CONOR EXAM: XR KNEE RT 3V AP,LAT,CONOR CLINICAL HISTORY: right knee pain. TECHNIQUE: 2D digital imaging was performed of the right knee. Three views obtained. AP, lateral an d PA tunnel views were obtained. COMPARISON: No exams were available for comparison FINDINGS: BONES: No acute fracture is present. No bony destructive lesion is seen. JOINTS: The knee is normally aligned. No joint effusion is seen. SOFT TISSUE: Normal. IMPRESSION: Unremarkable radiographs of the right knee. DATA REPOSITORY: RADIATION DOSE DELIVERED:
--- NOTE | 2024-06-09 18:17 | W.ED.GENAD ---
Discharge Plan Disposition Patient Disposition: Home Discharge Details Clinical Impression: Knee strain Primary Care Provider: Felisa Le ED Provider: Beverly Stephenson Home Meds and New Rx's Prescriptions: Continued norethindrone-e.estradiol-iron [Ana Lilai Fe 03/24 ([birth year])] 1 mg-20 mcg (21)/75 mg (7) tablet 1 tab PO 1XD Patient Comments: TAKE ONE TABLET BY MOUTH EVERY DAY Discharge Instructions Instructions: Muscle Strain (DC) Additional Instructions: motrin and tylenol as needed for pain wear brace as needed for support reevaluation with pcp with persistent or worsening pain, or should any new concerns arise Referrals: Felisa Le [Primary Care Provider] - 1 day HPI General Date/Time Provider Initiated Documentation: 06/09/24 17:26. HPI Narrative: The patient is an 19-year-old female with a history of adjustment disorder, PTSD, learning disability, multiple personality disorder, anxiety and depression, and intermittent aggressive behavior. She presents with suicidal ideation and a suicide attempt that was unwitnessed 2 weeks ago. She reports attempting self-harm and currently has no complaints other than feeling suicidal. She has a plan to overdose on her medications. She endorses auditory hallucinations, which are not new, but does not want to disclose their content. She does not experience visual hallucinations. She has been residing at [facility] for the past 2 weeks after leaving her mother's house. She admits to using alcohol and marijuana but claims abstinence from both for approximately 1 month. She reports no chance of . She also reports no chest pain, shortness of breath, or any additional complaints at this time. Related Data Home Medications ?Medication ?Instructions ?Recorded ?Confirmed norethindrone 1 mg-ethinyl 1 tab PO 1XD 03/08/22 06/09/24 estradiol 20 mcg (21)-iron 75 mg (7) tablet (Ana Lilia Fe 03/24 ([birth year])) Allergies Allergy/AdvReac Type Severity Reaction Status Date / Time Sulfa (Sulfonamide Allergy Nausea Verified 06/09/24 17:22 Antibiotics) prednisone AdvReac Intermediate Itching Verified 06/09/24 17:22 General Stated Complaint: Orthopedic SAUL: 4 Exam Narrative Exam Narrative: General Appearance: Alert and oriented, anxious. Vital signs: Within normal limits. HEENT: Reactive to light and accommodation. Respiratory: Within normal limits. Cardiovascular: Gastrointestinal: Genitourinary: Lymphatic: Back, Musculoskeletal: Ambulatory with steady gait. Extremities: Skin: Warm and dry, no rash. Neurological: Able to follow basic commands. Psychiatric: Suicidal, endorsing auditory hallucinations, insight and judgment are blunted. Other observations: Speaking in complete sentences. Course Vital Signs Vital signs: Vital Signs Temperature 36.8 C 06/09/24 17:17 Pulse 93 H 06/09/24 17:17 Respiratory Rate 16 06/09/24 17:17 Blood Pressure 127/78 06/09/24 17:17 Pulse Oximetry 98 06/09/24 17:17 Temperature 36.8 C 06/09/24 17:17 Temperature Source Oral 06/09/24 17:17 Pulse 93 H 06/09/24 17:17 Respiratory Rate 16 06/09/24 17:17 Blood Pressure 127/78 06/09/24 17:17 Blood Pressure Position Sitting 06/09/24 17:17 Pulse Oximetry 98 06/09/24 17:17 Oxygen Delivery Method Room Air 06/09/24 17:17 Oxygen Flow Rate 0 06/09/24 17:17 Pain Level 6 06/09/24 17:17 Medical Decision Making Laboratory Studies CBC, CMP within normal limits. Acetaminophen, salicylate PSA, all negative. TSH within normal limits. Initial Assessment: 19-year-old female with history of adjustment disorder, PTSD, learning disability, multiple personality disorder, anxiety, and depression, intermittent aggressive behavior, presents with suicidal ideation with a suicide attempt that was unwitnessed 2 weeks ago. Denies any current complaints aside from feeling suicidal. Has a plan to take all of her medications. Endorses auditory hallucinations, denies visual hallucinations, states auditory hallucinations are not new and does not want to disclose what they are telling her. Staying in [facility] for the past 2 weeks after leaving her mother's house. Endorses using alcohol and marijuana, not used for approximately 1 month per patient. Denies any chance of . Denies any chest pain, shortness of breath or any additional complaints at this time. Alert and oriented. Suicidal and endorsing auditory hallucinations. Insight and judgment are blunted. Able to follow basic commands. Able to ground, reactive to light and accommodation, ambulatory with steady gait, speaking in complete sentences. Anxious. ED Course: - Spoke with [facility] [employer]. - Voluntary placement, notify if attempts to leave, likely become involuntary. - Agreeable to stay in facility. - Given Topamax, hydroxyzine, and Ativan. - CBC, CMP within normal limits. - Acetaminophen, salicylate PSA, all negative. - TSH within normal limits. - Resting comfortably in room. - Pending bed placement. Final Assessment: Patient presents with suicidal ideation and a suicide attempt that was unwitnessed 2 weeks ago. She has a plan to take all of her medications and endorses auditory hallucinations. She has not taken her medications for approximately 2 weeks. She has been staying in [facility] for the past 2 weeks after leaving her mother's house. She has been resting comfortably in her room and is currently awaiting bed placement. She is very nervous about having blood work drawn, so it will be attempted after she has had these medications. A CBC, CMP, acetaminophen, salicylate PSA, test, and TSH were conducted, all within normal limits. I have spoken with [facility] [employer]. She is to be a voluntary placement; however, if she attempts to leave, we are to notify them, and she will likely become involuntary at that point. She is agreeable to stay in our facility at this time. She was given Topamax, hydroxyzine, and Ativan. Clinical Impression: - Suicidal ideation - Auditory hallucinations Disposition: - Pending bed placement MDM Components Evaluation: - Number of Differential Diagnoses or Management Options: Suicidal ideation, auditory hallucinations - Amount and Complexity of Data Reviewed: CBC, CMP, acetaminophen, salicylate PSA, test, TSH - Risk of Complication and Morbidity or Mortality: High risk due to suicidal ideation and history of suicide attempt Quality:SDOH Health Related Social Needs: No Data to Display PFSH All Active Problems (Updated 06/09/24 @ 19:31 by EUSEBIO Boo) Knee strain (Acute) Ankle sprain (Acute) Fracture of right great toe (Acute) Social History Smoking/Tobacco Use Status: Never Smoking risk assessment performed?: Yes Alcohol Intake: current Alcohol Intake frequency: holidays/special occasions only Drug use: Never Substance use type: does not use Housing: apartment Do you feel safe at home: Yes Do you feel safe in your relationship?: Yes
[2024-06-09 19:51] VITALS: PULSE 87; RESP 18; O2SAT 98
== END 2024-06-09 19:52 | disposition home or self-care (01) ==
PROVIDERS: Emergency Provider Physician Assistant; PCP Physician Assistant Medical
DX: S86.911A Strain of unspecified muscle(s) and tendon(s) at lower leg level, right leg, initial encounter (principal); X58.XXXA Exposure to other specified factors, initial encounter
CPT/HCPCS: 29505; 73562; 99283

== ENCOUNTER 2024-09-08 17:31 | Emergency (ER) | payer MEDICAID, SELFPAY ==
[2024-09-08 17:38] VITALS: BP 132/85; PULSE 85; RESP 16; TEMP 36.6; O2SAT 97
--- NOTE | 2024-09-08 17:45 | DI.RAD_ITS ---
Exam(s) XR HAND RT COMPLETE EXAM: XR HAND RT COMPLETE CLINICAL HISTORY: pain after son landed on hand. TECHNIQUE: 2D digital imaging was performed. Three views. COMPARISON: No exams were available for comparison FINDINGS: BONES: No acute fracture is present. No bony destructive lesion is seen. JOINTS: No dislocation present. SOFT TISSUE: Normal. IMPRESSION: Unremarkable radiographs of the right hand. DATA REPOSITORY: RADIATION DOSE DELIVERED:
--- NOTE | 2024-09-08 18:00 | W.ED.GENAD ---
Discharge Plan Disposition Patient Disposition: Home Condition: Stable Discharge Details Clinical Impression: Contusion of hand Primary Care Provider: Felisa Le ED Provider: Flakita Perez Home Meds and New Rx's Prescriptions: No Action norethindrone-e.estradiol-iron [Ana Lilia Fe 03/24 ([birth year])] 1 mg-20 mcg (21)/75 mg (7) tablet 1 tab PO 1XD Patient Comments: TAKE ONE TABLET BY MOUTH EVERY DAY levalbuterol tartrate [Xopenex HFA] 45 mcg/actuation HFA aerosol inhaler INHALATION Patient Comments: INHALE TWO PUFFS BY MOUTH EVERY 6 HOURS (DME) Aerochamber Plus Flow-Vu,L Msk Spacer MISCELLANEOUS Patient Comments: USE DIRECTED WITH INHALER Discharge Instructions Instructions: Minor Contusion ED Additional Instructions: Your x-ray did not show any acute fractures or dislocation. I suspect that you have a contusion or bruise to your right hand and for this I recommend Tylenol, ibuprofen for pain relief and ice pack for comfort. In the meantime if you do get worse or develop any new or concerning symptoms please return to the emergency department for reevaluation. HPI General Date/Time Provider Initiated Documentation: 09/08/24 17:47. HPI Narrative: The patient is a 29-year-old female with a prior history of wrist fracture who comes the emergency department for right hand injury. The patient reports that just prior to emergency room arrival her young son jumped on her right hand and since then she has had pain to the top of her hand and tingling sensation to the fingers of her right hand. Reports she is right-hand dominant. Reports the pain shoots up to the elbow. Denies injury elsewhere and states she was at her baseline health prior. Related Data Home Medications ?Medication ?Instructions ?Recorded ?Confirmed norethindrone 1 mg-ethinyl 1 tab PO 1XD 03/08/22 09/08/24 estradiol 20 mcg (21)-iron 75 mg (7) tablet (Ana Lilia Fe 03/24 ()) inhalat.spacing dev,large mask 09/08/24 09/08/24 (Aerochamber Plus Flow-Vu,Large Mask) levalbuterol tartrate 45 inhalation 09/08/24 mcg/actuation aerosol inhaler (Xopenex HFA) Allergies Allergy/AdvReac Type Severity Reaction Status Date / Time Sulfa (Sulfonamide Allergy Nausea Verified 09/08/24 17:42 Antibiotics) prednisone AdvReac Intermediate Itching Verified 09/08/24 17:42 General Stated Complaint: Orthopedic SAUL: 4 Review of Systems Narrative: Review of systems are negative except as mentioned. Exam Narrative Exam Narrative: General appearance: The patient is alert, has no immediate need for airway protection and no signs of toxicity. Cardiovascular: The patient strong right radial pulse and brisk capillary refill to all digits of the right hand. Neurological: The patient is alert, awake and oriented x 3. The patient has intact sensation to light touch throughout the entire right hand and all the digits of the right hand. Extremities: The dorsum of the right hand is tender to palpation just distal to the wrist without wrist tenderness to palpation and range of motion testing. She has no forearm or elbow tenderness noted to palpation or range of motion testing. All the digits of the right hand are nontender to palpation. She has no tenderness palpation along the right anatomic snuffbox. Course Vital Signs Vital signs: Vital Signs Temperature 36.6 C 09/08/24 17:38 Pulse 85 09/08/24 17:38 Respiratory Rate 16 09/08/24 17:38 Blood Pressure 132/85 09/08/24 17:38 Pulse Oximetry 97 09/08/24 17:38 Temperature 36.6 C 09/08/24 17:38 Temperature Source Oral 09/08/24 17:38 Pulse 85 09/08/24 17:38 Respiratory Rate 16 09/08/24 17:38 Blood Pressure 132/85 09/08/24 17:38 Blood Pressure Position Supine 09/08/24 17:38 Pulse Oximetry 97 09/08/24 17:38 Oxygen Delivery Method Room Air 09/08/24 17:38 Oxygen Flow Rate 0 09/08/24 17:38 Pain Level 6 09/08/24 17:38 Medical Decision Making X-ray has been ordered in light of injury. Patient declined pain medication currently. X-ray is back and she is found to have no acute finding. I have since updated the patient on workup result and of plan for discharge. I recommended Tylenol, ibuprofen as needed for pain relief, ice pack as well for comfort and to return to the emergency department with any worsening symptoms or any other concerns. Imaging Data Radiologic Study: Imaging: X-Ray (Right hand) Radiologist's impression: Unremarkable radiographs of the right hand. PFSH All Active Problems (Updated 09/08/24 @ 18:34 by Flakita Perez DO) Contusion of hand (Acute) Ankle sprain (Acute) Fracture of right great toe (Acute) Social History Smoking/Tobacco Use Status: Never Smoking risk assessment performed?: Yes Alcohol Intake: current Alcohol Intake frequency: holidays/special occasions only Drug use: Never Substance use type: does not use Housing: apartment Do you feel safe at home: Yes Do you feel safe in your relationship?: Yes
== END 2024-09-08 18:40 | disposition home or self-care (01) ==
PROVIDERS: Emergency Provider Emergency Medicine; PCP Physician Assistant Medical
DX: S60.221A Contusion of right hand, initial encounter (principal); W50.0XXA Accidental hit or strike by another person, initial encounter; Y93.89 Activity, other specified; Y92.018 Other place in single-family (private) house as the place of occurrence of the external cause
CPT/HCPCS: 99283; 73130

== ENCOUNTER 2024-12-07 09:16 | Emergency (ER) | payer MEDICAID, SELFPAY ==
[2024-12-07 09:41] VITALS: BP 153/75; PULSE 102; RESP 16; TEMP 36.2; O2SAT 98
--- NOTE | 2024-12-07 09:45 | DI.RAD_ITS ---
Exam(s) XR ANKLE LT COMPLETE EXAM: XR ANKLE LT COMPLETE CLINICAL HISTORY: pain s/p rolled it yesterday. TECHNIQUE: 2D digital imaging was performed. COMPARISON: CR XR ANKLE LT COMPLETE from 06/02/2022 FINDINGS: 3 views No evidence of acute fracture or widening the ankle mortise. Talar domeh unremarkable. Small joint effusion noted. Bone density normal. No osseous lesions. No erosions. No radiopaque foreign bodies. IMPRESSION: No acute osseous findings in the ankle. Possible small joint effusion DATA REPOSITORY: RADIATION DOSE DELIVERED:
--- NOTE | 2024-12-07 10:11 | W.ED.GENAD ---
Discharge Plan Disposition Patient Disposition: Home Condition: Stable Discharge Details Clinical Impression: Left ankle sprain, Injury of ankle, left Primary Care Provider: Felisa Le ED Provider: Barrett Garcia Home Meds and New Rx's Prescriptions: Continued norethindrone-e.estradiol-iron [Ana Lilia Fe [birth year])] 1 mg-20 mcg (21)/75 mg (7) tablet 1 tab PO 1XD Patient Comments: TAKE ONE TABLET BY MOUTH EVERY DAY levalbuterol tartrate [Xopenex HFA] 45 mcg/actuation HFA aerosol inhaler INHALATION Patient Comments: INHALE TWO PUFFS BY MOUTH EVERY 6 HOURS (DME) Aerochamber Plus Flow-Vu,L Msk Spacer MISCELLANEOUS Patient Comments: USE DIRECTED WITH INHALER Discharge Instructions Additional Instructions: Your x-ray on my read did not show any fractures. If radiology sees anything of concern I will give you a phone call. If not improving within a week follow-up with your primary care provider or express care. If you feel more ill or have severe worsening pain return to the emergency department for reevaluation. You can take 1000 mg of acetaminophen and 600 mg of ibuprofen every 6 hours as needed. HPI General Mode of arrival: ambulatory. Date/Time Provider Initiated Documentation: 12/07/24 09:45. Limitations to Documentation: no limitations. Information obtained by: patient. History of Present Illness 29 year old F presents to the emergency department with the chief complaint of left ankle pain, described as moderate, Patient started experiencing this day(s) (1) and it has been constant. Rest improves symptom(s), Movement worsens symptoms . Patient notes no other symptoms.. Patient did receive the following treatments prior to arrival, none Related Data Home Medications ?Medication ?Instructions ?Recorded ?Confirmed norethindrone 1 mg-ethinyl 1 tab PO 1XD 03/08/22 09/08/24 estradiol 20 mcg (21)-iron 75 mg (7) tablet (Ana Lilia Fe 03/24 ([birth year])) inhalat.spacing dev,large mask 09/08/24 09/08/24 (Aerochamber Plus Flow-Vu,Large Mask) levalbuterol tartrate 45 inhalation 09/08/24 mcg/actuation aerosol inhaler (Xopenex HFA) Allergies Allergy/AdvReac Type Severity Reaction Status Date / Time Sulfa (Sulfonamide Allergy Nausea Verified 12/07/24 09:45 Antibiotics) prednisone AdvReac Intermediate Itching Verified 12/07/24 09:45 General Stated Complaint: Orthopedic SAUL: 4 Review of Systems All systems reviewed & are unremarkable except as noted in HPI and below Constitutional Constitutional: Denies chills, Denies fever(s) and Denies weakness Cardiovascular Cardiovascular: Denies chest pain and Denies dyspnea Respiratory Respiratory: Denies cough and Denies dyspnea Gastrointestinal Gastrointestinal: Denies abdominal pain, Denies nausea and Denies vomiting Neurologic Neurologic: Denies weakness Psychiatric Psychiatric: Denies depression Exam Const General: no acute distress Orientation: alert HENMT Head: normal to inspection Ears: external ears normal General nose exam: external nose normal Mouth: moist mucous membranes Eyes General: appearance normal, both eyes and all related structures Neck Neck: normal visual inspection Resp Effort & Inspection: normal respiratory effort and able to speak in complete sentences Cardio Rate: regular rate Skin General skin exam: no rashes or lesions noted Neuro General: patient alert and patient oriented x3 Extrem General: full ROM and capillary refill normal Psych Mental Status: mental status grossly normal Course Vital Signs Vital signs: Vital Signs Temperature 36.2 C L 12/07/24 09:41 Pulse 102 H 12/07/24 09:41 Respiratory Rate 16 12/07/24 09:41 Blood Pressure 153/75 H 12/07/24 09:41 Pulse Oximetry 98 12/07/24 09:41 Temperature 36.2 C L 12/07/24 09:41 Temperature Source Temporal Artery Scan 12/07/24 09:41 Pulse 102 H 12/07/24 09:41 Respiratory Rate 16 12/07/24 09:41 Blood Pressure 153/75 H 12/07/24 09:41 Pulse Oximetry 98 12/07/24 09:41 Oxygen Delivery Method Room Air 12/07/24 09:41 Oxygen Flow Rate 0 12/07/24 09:41 Pain Level 7 12/07/24 09:41 Medical Decision Making 29-year-old female comes in with lateral left ankle pain. She says she was walking downstairs when she missed a stair and rolled the left ankle. She did not fall or hit her head. She has lateral left ankle pain. She is able to bear weight. She does have some mild swelling over the lateral left ankle, has full range of motion of the ankle. No posterior ankle tenderness. No tenderness in the foot. I suspect sprain but will obtain x-rays to evaluate for fracture Patient's x-ray on my read shows no fractures, current turnaround time for virtual radiology is over 3 hours. Patient is stable. Discussed results with her and she does not want a wait to get through results so I will give her phone call that she anything of concern. Will provide her with a short walking boot for an ankle sprain. She will follow-up with her PCP or express care if not improving in a week and return precautions given Differential Diagnosis Differential Diagnosis: Sprain, fracture, contusion PFSH All Active Problems (Updated 12/07/24 @ 11:16 by Barrett Garcia MD) Injury of ankle, left (Acute) Left ankle sprain (Acute) Ankle sprain (Acute) Fracture of right great toe (Acute) Social History Smoking/Tobacco Use Status: Never Smoking risk assessment performed?: Yes Alcohol Intake: current Alcohol Intake frequency: holidays/special occasions only Alcohol type: beer Drug use: Never Substance use type: does not use Housing: apartment Do you feel safe at home: Yes Do you feel safe in your relationship?: Yes
--- NOTE | 2024-12-07 13:09 | DI.VRAD_ITS ---
PROCEDURE INFORMATION: Exam: XR Left Ankle Exam date and time: 12/07/2024 10:52 AM Age: 29 years old Clinical indication: Other: Pain S/P rolled it yesterday TECHNIQUE: Imaging protocol: Radiologic exam of the left ankle. Views: 3 or more views. COMPARISON: CR XR ANKLE LT COMPLETE 06/02/2022 4:25 PM FINDINGS: Bones/joints: No acute fracture or malalignment. No significant degenerative change. No agressive bone destruction. Soft tissues: Unremarkable. IMPRESSION: 1. No acute findings. 2. If clinical concern for occult fracture, consider followup radiographs in 10-14 days. Dictated and Authenticated by: Madeleine Allison MD. Orderin Jose Hyde MD
== END 2024-12-07 11:34 | disposition home or self-care (01) ==
PROVIDERS: Emergency Provider Emergency Medicine; PCP Physician Assistant Medical
DX: S93.402A Sprain of unspecified ligament of left ankle, initial encounter (principal); W10.9XXA Fall (on) (from) unspecified stairs and steps, initial encounter
CPT/HCPCS: 99283 ×2; 73610